=== PATIENT | male | born 1950 | race Caucasian/White ===

== ENCOUNTER 2017-01-13 11:46 | Emergency (ER) | payer BC ==
[2017-01-13] MEDS ORDERED: Famotidine 20 MG/2 ML SDV IVPUSH ONE (11:51)
[2017-01-13] MEDS ORDERED: Aspirin 81 MG Tab.Chew CHEW ONE (11:51)
[2017-01-13] MEDS ORDERED: Ticagrelor 90 MG Tab PO ONE (11:51)
[2017-01-13] MEDS ORDERED: Metoprolol Tartrate 5 MG/5 ML SDV IVPUSH ONE (11:51)
[2017-01-13] MEDS ORDERED: Sodium Chloride 0.9% 10 ML Syringe FLUSH PRN (11:51)
--- NOTE | 2017-01-13 12:14 | EDM.PDOC ---
ED HPI GENERAL MEDICAL PROBLEM - General Chief Complaint: Chest Pain Stated Complaint: epigastic pain, left jaw aching, left arm aching Time Seen by Provider: 01/13/17 11:46 Source of Information: Reports: Patient, Old Records ([facility] chart/EMR) History Limitations: Reports: No Limitations - History of Present Illness INITIAL COMMENTS - FREE TEXT/NARRATIVE: The patient drove himself to the emergency room via private automobile after brief evaluation by his regular provider, Parish Richards PA-C, at the [facility] [place] in [place], shortly prior to arrival to our facility with no treatment given in that clinic by his history. He was awakened from his sleep at 04:00 a.m. today with 10/10 retrosternal chest pressure with radiation to the left jaw , neck, shoulder, and arm with additional nausea, one episode of emesis, and cold sweats/diaphoresis. The patient did take 2 antacid tablets at that time with improvement of his symptoms to 5/10, although this does persist at this time. The patient denies any heart flutter, dizziness, orthostasis, orthopnea, recent decreased exercise tolerance, or any other anginal-type symptoms. No recent history of abdominal pain, heartburn, diarrhea, melena, gross hematochezia, or any food intolerance, including fatty foods, etc. with normal bowel movement yesterday afternoon. His last oral intake was some coffee at about 9 AM with no solids since going to bed yesterday. He denies any nausea at this time. The patient also denies any recent fever, cough, wheezing, dyspnea, etc.. No history of recent headaches, visual changes, diplopia, change in mental status, or other change in neurological status. His blood pressure has been somewhat under poor control recently by his history Onset: Today, Sudden Onset Date: 01/13/17 Onset Time: 04:00 Duration: Constant, Heavy Location: Reports: Face, Neck, Chest, Upper Extremity, Left, Radiates to (As above). Denies: Head, Abdomen, Back, Pelvis, Upper Extremity, Right, Lower Extremity, Left, Lower Extremity, Right, Generalized Quality: Reports: Pressure, Stabbing Severity: Severe Improves with: Reports: Medication (Antacids as above) Worsens with: Reports: None Context: Reports: Other (As above) Associated Symptoms: Reports: Chest Pain, Diaphoresis, Nausea/Vomiting. Denies : Confusion, Cough, Fever/Chills, Headaches, Loss of Appetite, Malaise, Rash, Seizure, Shortness of Breath, Syncope, Weakness Treatments DRIVE TESTER: Reports: Acetaminophen, Other Medication(s) (Antacids and morning medications taken at 5 AM including his Prilosec, etc.) Middle Chest Pain Score (Numeric/FACES): 5 - Related Data Allergies Allergy/AdvReac Type Severity Reaction Status Date / Time lisinopril Allergy Cough Verified 06/06/14 12:58 peanut Allergy Wheezing Verified 06/06/14 12:58 Penicillins Allergy unknown Verified 06/06/14 12:58 Sulfa (Sulfonamide Allergy Hives Verified 06/06/14 12:58 Antibiotics) CATS Allergy Wheezing Uncoded 01/13/17 12:22 DUST MITE EXTRACT Allergy Wheezing Uncoded 06/06/14 12:58 HORSE Allergy Wheezing Uncoded 06/06/14 12:58 Home Meds: Home Meds Acetaminophen 1,000 mg PO DAILY 06/06/14 [History] Fexofenadine/Pseudoephedrine [Mica-D 12 Hour Tablet] 1 tab PO DAILY PRN 06/06 [History] Fluticasone Propionate [Flonase] 2 sprays INH DAILY PRN 06/06/14 [History] Hydrochlorothiazide 25 mg PO DAILY 06/06/14 [History] Losartan [Cozaar] 100 mg PO DAILY 06/06/14 [History] Meloxicam 7.5 mg PO DAILY 06/06/14 [History] Terbinafine HCl [Lamisil] 250 mg PO DAILY 06/06/14 [History] amLODIPine Besylate [Amlodipine Besylate] 10 mg PO DAILY 06/06/14 [History] buPROPion HCl [Wellbutrin SR] 150 mg PO DAILY 06/06/14 [History] Omeprazole 40 mg PO DAILY 01/13/17 [History] Past Medical History HEENT History: Reports: Allergic Rhinitis, Impaired Vision, Other (See Below). 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 Denies: Afib, Aneurysm, Blood Clots/VTE/DVT, CAD, Heart Failure, Heart Murmur, MD, PVD, Syncope Other Cardiovascular History: Dyslipidemia, complete right bundle branch block Respiratory History: Reports: Bronchitis, Recurrent, COPD, Intubation, Previous , Pulmonary Fibrosis, Other (See Below). Denies: Asthma, Intubation, Difficult , PE, Pneumothorax, TB Other Respiratory History: Pulmonary fibrosis by chest x-ray Gastrointestinal History: Reports: Colon Polyp, Gastritis, GERD, PUD, Other ( See Below). Denies: Celiac Disease, Cholelithiasis, Chronic Constipation, Chronic Diarrhea, Diverticulosis, Fecal Incontinence, GI Bleed, Hepatitis, Hiatal Hernia, Inflammatory Bowel Disease, Irritable Bowel Syndrome, Jaundice, Pancreatitis Other Gastrointestinal History: History of recurrent colonic polyps initially diagnosed by colonoscopy on 04/06/07 with subsequent colonoscopy on 06/06/14 showing a tubulous adenoma 35 centimeters, adenomatous colonic polyp at 30 cm and a benign hyperplastic polyp at 15 cm Genitourinary History: Reports: BPH. Denies: Acute Renal Failure, Chronic Renal Insuffiency, Dialysis, Renal Calculus, STD, Urinary Incontinence, UTI, Recurrent Musculoskeletal History: Reports: Arthritis, Back Pain, Chronic, Fracture, Neck Pain, Chronic, Osteoarthritis, Other (See Below). Denies: Amputation, Gout, RA , SLE Other Musculoskeletal History: Left lateral malleolus on 05/13/94, right wrist fracture at age 18, fractures of the third and fourth finger of the right hand in 1970 secondary to a boxing injury, two previous nasal fractures 1 from boxing and the other from football Neurological History: Reports: Headaches, Chronic, Neuropathy, Peripheral, Other (See Below). Denies: Brain Injury, Cerebral Aneurysms, Concussion, CVA, Head Trauma, Migraines, MS, Parkinson's, Seizure, TIA Other Neuro History: Known history of carpal tunnel syndrome Psychiatric History: Reports: Anxiety, Depression. Denies: Abuse, Victim of, ADD, ADHD, Addiction, Psych Hospitalization(s), PTSD, Suicide Attempt, Suicidal Ideation Endocrine/Metabolic History: Reports: Other (See Below). Denies: Diabetes, Type I, Diabetes, Type II, Hyperparathyroidism, Hypothyroidism, IDDM, Osteoporosis Other Endocrine/Metabolic History: Borderline hyperglycemia currently treated with diet Hematologic History: Reports: Other (See Below). Denies: Anemia, Blood Transfusion(s), Iron Deficiency Other Hematologic History: Macrocytosis Immunologic History: Reports: None. Denies: AIDS, HIV, SLE Oncologic (Cancer) History: Reports: None, Pancreatic. Denies: Basal Cell Carcinoma, Colon, Hodgkin's Lymphoma, Leukemia, Lymphoma, Malignant Melanoma, Non-Hodgkin's Lymphoma, Prostate, Squamous Cell Carcinoma Dermatologic History: Reports: None. Denies: Eczema, Psoriasis - Infectious Disease History Infectious Disease History: Reports: Measles, Rubella. Denies: C-Difficile, Chicken Pox (Uncertain), Meningitis, Mononucleosis, MRSA, Mumps, Pertussis ( Whooping Cough), Rheumatic Fever, Scarlet Fever, TB, VRE - Past Surgical History Head Surgeries/Procedures: Reports: None HEENT Surgical History: Reports: Adenoidectomy, Oral Surgery, Tonsillectomy, Other (See Below). Denies: Cataract Surgery, Eye Surgery, Laser Surgery, LASIK , Myringotomy w Tube(s), Naso-Sinus Surgery Other HEENT Surgeries/Procedures: Tonsillectomy and adenoidectomy at age 10, [place] teeth extraction 4 with multiple previous dental extractions with partial dentures uppers and lowers Cardiovascular Surgical History: Reports: None. Denies: Varicose, Vascular Surgery Respiratory Surgical History: Reports: None. Denies: Thoracentesis GI Surgical History: Reports: Colonoscopy, EGD, Hernia, Inguinal, Polypectomy, Other (See Below). Denies: Appendectomy, Cholecystectomy, Hernia, Abdominal, Hernia Repair/Other Other GI Surgeries/Procedures: Right inguinal hernia repair in about 2008, last colonoscopy and EGD on 04/06/15 with previous evaluation on 04/06/07, previous colonoscopy on 09/18/01 Male Surgical History: Reports: Circumcision, Other (See Below). Denies: Renal Calculus, TURP-Transurethral Resection of Prostate, Vasectomy Other Male Surgeries/Procedures: Circumcision as an Neurological Surgical History: Reports: C-Spine, Laminectomy, Other (See Below) . Denies: Discectomy, Intracranial, Lumbar Spine, Spinal Fusion, Vertebroplasty Other Neurological Surgeries/Procedures: Cervical laminectomy on 11/24/01 Musculoskeletal Surgical History: Reports: Carpal Tunnel, Ganglion Cyst, Shoulder Replacement, Shoulder Surgery, Other (See Below). Denies: Arthroscopic Procedure, Joint Replacement, ORIF Other Musculoskeletal Surgeries/Procedures:: Left-sided carpal tunnel release with concomitant excision of benign ganglion cyst from the left thumb in August 2016, right shoulder arthroplasty on 08/11/11 Oncologic Surgical History: Reports: None Dermatological Surgical History: Reports: None - Past Imaging History Past Imaging History: Reports: PFT (Last PFTs on 03/30/07 with previous evaluation on 11/01/02). Denies: Angiography, Cardiac Echo, Carotid US, Stress Testing Social & Family History - Family History HEENT: Reports: Allergic Rhinitis, Macular Degeneration, Other (See Below). Denies: Cataract, Glaucoma, Retinal Detachment Other HEENT Family History: Mother with allergic rhinitis, brother with macular degeneration Cardiac: Reports: Arrhythmia, CAD, High Cholesterol, Hypertension, PVD/COD, Other (See Below). Denies: Afib, AICD, Aneurysm, Blood Clots/VTE/DVT, Bypass, Heart Failure, Heart Murmur, MD, Pacemaker, Stent, Syncope Other Cardiac Family History: Mother with unknown type of arrhythmia and heart disease in her 70s, hypertension in mother and 2 brothers, brothers 2 and sister with hyperlipidemia, brother with carotid occlusive disease which did require carotid endarterectomy Respiratory: Reports: Asthma, COPD, Other (See Below). Denies: PE, Pneumothorax , Sleep Apnea Other Respiratory Family Hisory: Mother with asthma, COPD in 2 maternal uncles who did use tobacco with one of these uncles dying at age 55 from this disease, brother with COPD and history of tobacco use GI: Reports: Cholelithiasis, Colon Polyps, GERD, Hiatal Hernia, Other (See Below ). Denies: Celiac Disease, Diverticulosis, GI bleed, Inflammatory Bowel Disease , Irritable Bowel Syndrome Other GI Family History: Brother with colonic polyps at age 48, Brother with hiatal hernia, mother with cholelithiasis and GERD, father with peptic ulcer disease : Reports: Renal Calculus, Other (See Below). Denies: Dialysis, Renal Disease /Insufficiency Other Family History: Brother with urolithiasis Musculoskeletal: Reports: Arthritis, Osteoarthritis, Other (See Below). Denies : Gout, RA, SLE Other Musculoskeletal Family History: Brother with osteoarthritis Neurological: Reports: Alzheimers Disease, CVA, Dementia, Other (See Below). Denies: Cerebral Aneurysms, Migraines, MS, Parkinson's, Seizure, TIA Other Neurological Family History: Father with CVA at age 92, mother with organic brain syndrome, maternal grandmother with history of 2 previous CVAs fatal in her 90s Psychiatric: Reports: Anxiety, Depression, Other (See Below). Denies: Abuse, Victim of, ADD, ADHD, Psych Hospitalization(s), PTSD, Suicide Attempt Other Psychiatric Family History: Mother with mixed anxiety depression disorder Endocrine/Metabolic: Reports: None. Denies: Diabetes, Type I, Diabetes, type II , Hypothyroidism, IDDM Hematologic: Reports: None. Denies: Anemia, SLE, Transfusion Reaction Immunologic: Reports: None. Denies: AIDS, HIV, SLE Dermatologic: Reports: Eczema. Denies: Psoriasis Other Dermatologic Family History: Mother with eczema Oncologic: Reports: Colon, Other (See Below). Denies: Hodgkin's Lymphoma, Leukemia, Lymphoma, Non-Hodgkin's Lymphoma, Prostate, Skin Other Oncologic Family History: Paternal uncle with fatal colon cancer at age 74 , paternal grandfather with fatal cancer of unknown type, patient denies family history of rectal cancer in maternal uncle despite medical records - Tobacco Use Smoking Status *Q: Former Smoker Tobacco Use Within Last Twelve Months: No Years of Tobacco use: 50 Packs/Tins Daily: 2 (Smoke cigarettes between ages 61 and 11 with maximum use of 3 packs per day) Used Tobacco, but Quit: Yes Month Tobacco Last Used: As above Smoking Cessation Information Provided To Patient: No Second Hand Smoke Exposure: Yes Source of Second Hand Smoke Exposure: smokes Second Hand Smoke Education Provided: Yes - Caffeine Use Caffeine Use: Reports: Coffee (2 cups per day), Soda (2 sodas per day). Denies : Energy Drinks, Tea - Alcohol Use Alcohol Use History: Yes Days Per Week of Alcohol Use: 7 (No previous DWIs, problems with alcohol abuse, etc.) Number of Drinks Per Day: 3 (Usually wine or mixed drinks with occasional beer) Total Drinks Per Week: 21 Alcohol Use in Last Twelve Months: Yes Alcohol Use Frequency: Socially - Recreational Drug Use Recreational Drug Use: No Drug Use in Last 12 Months: No Recreational Drug Type: Denies: Amphetamines (Speed), Cocaine, Heroin, Inhalants (Glues, Solvents, Aerosols), LSD (Acid), Marijuana/Hashish, Morphine, Psilocybin (Mushrooms) - Living Situation & Occupation Living situation: Reports: ( to second in 1986 with no children from this relationship, from first with 2 children from this relationship,), with Family () 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 Denies: Fever, Chills, Malaise, Weakness , Fatigue, Night Sweats, Decreased Appetite, Weight Loss, Weight Gain HEENT: Reports: No Symptoms. Denies: Contact Lenses, Dental Pain, Ear Pain, Eye Pain, Glasses, Nose Pain, Rhinitis, Sinus Problem, Throat Pain, Throat Swelling, Vertigo, Vision Change Respiratory: Reports: No Symptoms. Denies: Shortness of Breath, Wheezing, Pleuritic Chest Pain, Cough Cardiovascular: Reports: Chest Pain, Blood Pressure Problem (Elevated blood pressure on arrival). Denies: Dyspnea on Exertion, Edema, Lightheadedness, Orthopnea, Palpitations, PND, Syncope Endocrine: Reports: No Symptoms. Denies: Fatigue GI/Abdominal: Reports: Nausea, Vomiting. Denies: Abdominal Pain, Anorexia, Constipation, Diarrhea, Decreased Appetite, Difficulty Swallowing, Distension, Flatus, Hematemesis, Hematochezia, Melena : Reports: No Symptoms. Denies: Discharge, Dysuria, Flank Pain, Frequency, Hematuria, Incontinence, Pain, Urgency, Urinary Retention Musculoskeletal: Reports: Neck Pain, Shoulder Pain, Arm Pain. Denies: Back Pain , Hand Pain, Leg Pain Skin: Reports: Diaphoresis. Denies: Pallor, Bruising, Wound Neurological: Reports: No Symptoms. Denies: Confusion, Dizziness, Headache, Numbness, Paresthesia, Seizure, Syncope, Tingling, Weakness Psychiatric: Reports: No Symptoms. Denies: Agitation, Anxiety, Confusion, Cravings, Depression, Hallucinations, Suicidal Ideation Hematologic/Lymphatic: Reports: No Symptoms Immunologic: Reports: No Symptoms ED EXAM, GENERAL - Physical Exam Exam: See Below Exam Limited By: No Limitations General Appearance: Alert, WD/WN, No Apparent Distress Eye Exam: Bilateral Eye: EOMI, Normal Inspection (No nystagmus), PERRL Ears: Normal External Exam, Normal Canal, Normal TMs, Hearing Loss (Borderline bilateral) Nose: Normal Inspection, Normal Mucosa, No Blood Throat/Mouth: Normal Inspection, Normal Lips, Normal Gums, Normal Oropharynx, Normal Voice, No Airway Compromise. No: Normal Teeth (Partial dentures uppers and lowers), Dysphagia, Perioral Cyanosis Head: Atraumatic, Normocephalic. No: Facial Swelling, Facial Tenderness, Sinus Tenderness Neck: Normal Inspection, Supple, Non-Tender, Full Range of Motion. No: Carotid Bruit, Lymphadenopathy (L), Lymphadenopathy (R), Thyromegaly Respiratory/Chest: No Respiratory Distress, Lungs Clear, Normal Breath Sounds, No Accessory Muscle Use, Chest Non-Tender. No: Pleural Rub, Retractions Cardiovascular: Normal Peripheral Pulses, Regular Rate, Rhythm, No Edema, No Gallop, No JVD, No Murmur, No Rub. No: Tachycardia (Resolution of borderline tachycardia on arrival), Gallop/S3, Gallop/S4, Friction Rub Peripheral Pulses: 2+: Radial (L), Radial (R), Dorsalis Pedis (L), Dorsalis Pedis (R) GI/Abdominal: Normal Bowel Sounds, Soft, Non-Tender, No Organomegaly, No Distention, No Abnormal Bruit, No Mass, Pelvis Stable. No: Guarding (Male) Exam: Deferred Rectal (Males) Exam: Deferred Back Exam: Normal Inspection, Full Range of Motion. No: CVA Tenderness (L), CVA Tenderness (R), Muscle Spasm Extremities: Normal Inspection, Normal Range of Motion, Non-Tender, No Pedal Edema, Normal Capillary Refill. No: Anjali's Sign Neurological: Alert, Oriented, CN II-XII Intact, Normal Cognition, Normal Gait, Normal Reflexes (Negative Babinski's), No Motor/Sensory Deficits Psychiatric: Normal Affect, Normal Mood Skin Exam: Warm, Dry, Intact, Normal Color, No Rash. No: Cyanosis, Diaphoretic , Ecchymosis, Pallor, Wound/Incision Lymphatic: No Adenopathy EKG INTERPRETATION EKG Date: 01/13/17 Time: 11:58 Rhythm: NSR Rate (Beats/Min): 96 [place]: Normal (Left cardiac axis) P-Wave: Present (Mild diffuse biphasic P waves with extreme poor R-wave progression in the anterior leads) QRS: RBBB (QRS interval of 0.12 seconds with T-wave inversion in leads 3 and V1) ST-T: Normal QT: Normal CO/PQ Interval: CO interval 0.12 seconds representing a short CO interval with no delta waves noted Comparison: No Change (Previous EKG on 02/23/09) Course - Vital Signs Last Recorded V/S: Last Vital Signs Temp 36.8 C 01/13/17 11:46 Pulse 93 01/13/17 13:40 Resp 20 01/13/17 13:40 BP 168/100 H 01/13/17 13:40 Pulse Ox 100 01/13/17 13:40 Vital Signs - 24 hr 01/13/17 01/13/17 01/13/17 11:46 12:05 12:18 Temperature [ 36.8 C Oral] Pulse, 99 Peripheral Pulse, 111 H Peripheral [ Left Pulse Oximetry] Respiratory 18 Rate Blood Pressure 165/93 H 157/98 H Blood Pressure 186/101 H [Right Upper Arm] O2 Sat by Pulse 100 Oximetry 01/13/17 01/13/17 01/13/17 12:37 12:38 12:45 Temperature [ Oral] Pulse, Peripheral Pulse, 103 H 87 83 Peripheral [ Left Pulse Oximetry] Respiratory 21 H 17 20 Rate Blood Pressure Blood Pressure 165/93 H 149/93 H 158/98 H [Right Upper Arm] O2 Sat by Pulse 100 100 100 Oximetry 01/13/17 01/13/17 01/13/17 13:00 13:15 13:32 Temperature [ Oral] Pulse, Peripheral Pulse, 85 89 89 Peripheral [ Left Pulse Oximetry] Respiratory 19 20 Rate Blood Pressure Blood Pressure 167/92 H 165/96 H 156/124 H [Right Upper Arm] O2 Sat by Pulse 100 100 Oximetry 01/13/17 13:40 Temperature [ Oral] Pulse, Peripheral Pulse, 93 Peripheral [ Left Pulse Oximetry] Respiratory 20 Rate Blood Pressure Blood Pressure 168/100 H [Right Upper Arm] O2 Sat by Pulse 100 Oximetry - Orders/Labs/Meds Orders: Active Orders 24 hr Category Date Time Status Cardiac Monitoring [RC] . DIRECTED Care 01/13/17 11:51 Active EKG Documentation Completion [RC] ASDIRECTED Care 01/13/17 11:51 Active Oxygen Therapy, ED [RC] CONTINUOUS Care 01/13/17 11:51 Active Peripheral IV Care [RC] . DIRECTED Care 01/13/17 11:51 Active Pulse Oximetry [RC] CONTINUOUS Care 01/13/17 11:51 Active Up With Assistance [RC] PFP Care 01/13/17 11:51 Active Vital Signs [RC] PFP Care 01/13/17 11:51 Active Nothing per Oral Now Diet [DIET] Diet 01/13/17 Breakfast Active Chest 1V Frontal [CR] Stat Exams 01/13/17 11:51 Taken Heparin Sodium/D5W [Heparin 25,000 Units in D5W 500 ML] Med 01/13/17 13:00 Active 25,000 units in 500 ml IV TITRATE Nitroglycerin [Nitrostat] Med 01/13/17 12:16 Stat 0.4 mg SL ONETIME STA Sodium Chloride 0.9% [Normal Saline] 1,000 ml Med 01/13/17 13:30 Active IV ASDIRECTED Sodium Chloride 0.9% [Saline Flush] Med 01/13/17 11:51 Active 10 ml FLUSH ASDIRECTED PRN Obtain Past Medical Record [OM.PC] Urgent Oth 01/13/17 11:51 Active Peripheral IV Insertion Adult [OM.PC] Stat Oth 01/13/17 11:51 Ordered Resuscitation Status Stat Resus Stat 01/13/17 11:51 Ordered Medication Orders Heparin Sodium/Dextrose (Heparin 25,000 Units In D5w 500 Ml) 25,000 units in 500 mls @ 16.32 mls/hr IV TITRATE BYRON; 12 UNITS/KG/HR PRN Reason: Protocol Last Admin: 01/13/17 13:12 Dose: 12 units/kg/hr, 16.32 mls/hr Sodium Chloride (Normal Saline) 1,000 mls @ 30 mls/hr IV ASDIRECTED BYRON Last Admin: 01/13/17 13:21 Dose: 30 mls/hr Nitroglycerin (Nitrostat) 0.4 mg SL ONETIME STA Stop: 01/14/17 12:17 Last Admin: 01/13/17 12:18 Dose: 0.4 mg Sodium Chloride (Saline Flush) 10 ml FLUSH ASDIRECTED PRN PRN Reason: Keep Vein Open Last Admin: 01/13/17 13:03 Dose: 10 ml Labs: Laboratory Tests 01/13/17 01/13/17 01/13/17 Range/Units 12:00 12:00 12:00 WBC 6.2 (4.0-10.2) K/uL RBC 4.52 (4.33-5.41) M/uL Hgb 15.1 (13.1-16.8) g/dL Hct 41.7 (39.0-49.0) % MCV 92.3 (84.0-98.0) fL MCH 33.4 H (28.2-33.3) pg MCHC 36.2 H (31.7-36.0) g/dL RDW 11.8 (11.2-14.1) % Plt Count 306 (150-350) K/uL Neut % (Auto) 61.6 (45.0-80.0) % Lymph % (Auto) 23.7 (10.0-50.0) % [place] % (Auto) 12.0 (2.0-14.0) % Eos % (Auto) 2.1 (0.0-5.0) % Baso % (Auto) 0.6 (0.0-2.0) % Neut # (Auto) 3.81 (1.40-7.00) K/uL Lymph # (Auto) 1.47 (0.50-3.50) K/uL [place] # (Auto) 0.74 (0.00-1.00) K/uL Eos # (Auto) 0.13 (0.00-0.50) K/uL Baso # (Auto) 0.04 (0.00-0.20) K/uL PT 10.7 (9.8-11.7) SEC INR 1.0 APTT 23.9 (23.5-30.0) SEC D-Dimer, Quantitative < 100 (0-400) ng/mL Sodium (136-145) mmol/L Potassium (3.5-5.1) mmol/L Chloride (98-107) mmol/L Carbon Dioxide (21.0-32.0) mmol/L BUN (7-18) mg/dL Creatinine (0.51-1.17) mg/dL Est Cr Clr Drug Dosing Estimated GFR (MDRD) mL/min Glucose (74-106) mg/dL Lactic Acid (0.4-2.0) mmol/L Uric Acid (2.6-7.2) mg/dL Calcium (8.5-10.1) mg/dL Magnesium (1.8-2.4) mg/dL Total Bilirubin (0.2-1.0) mg/dL AST (15-37) U/L ALT (12-78) U/L Alkaline Phosphatase (46-116) IU/L Creatine Kinase (26-308) U/L Creatine Kinase Index (0.0-2.5) % CK-MB (CK-2) (0.00-3.60) ng/mL Troponin I (0.000-0.056) ng/mL Scy-K-Fuckexxqufl Pept (0-125) pg/mL Total Protein (6.4-8.2) g/dL Albumin (3.4-5.0) g/dL TSH, Ultra Sensitive (0.358-3.740) mIU/mL 01/13/17 01/13/17 Range/Units 12:00 12:00 WBC (4.0-10.2) K/uL RBC (4.33-5.41) M/uL Hgb (13.1-16.8) g/dL Hct (39.0-49.0) % MCV (84.0-98.0) fL MCH (28.2-33.3) pg MCHC (31.7-36.0) g/dL RDW (11.2-14.1) % Plt Count (150-350) K/uL Neut % (Auto) (45.0-80.0) % Lymph % (Auto) (10.0-50.0) % [place] % (Auto) (2.0-14.0) % Eos % (Auto) (0.0-5.0) % Baso % (Auto) (0.0-2.0) % Neut # (Auto) (1.40-7.00) K/uL Lymph # (Auto) (0.50-3.50) K/uL [place] # (Auto) (0.00-1.00) K/uL Eos # (Auto) (0.00-0.50) K/uL Baso # (Auto) (0.00-0.20) K/uL PT (9.8-11.7) SEC INR APTT (23.5-30.0) SEC D-Dimer, Quantitative (0-400) ng/mL Sodium 141 (136-145) mmol/L Potassium 3.6 (3.5-5.1) mmol/L Chloride 103 (98-107) mmol/L Carbon Dioxide 27.5 (21.0-32.0) mmol/L BUN 15 (7-18) mg/dL Creatinine 0.98 (0.51-1.17) mg/dL Est Cr Clr Drug Dosing TNP Estimated GFR (MDRD) > 60 mL/min Glucose 108 H (74-106) mg/dL Lactic Acid 0.6 (0.4-2.0) mmol/L Uric Acid 3.8 (2.6-7.2) mg/dL Calcium 9.1 (8.5-10.1) mg/dL Magnesium 0.9 L (1.8-2.4) mg/dL Total Bilirubin 0.9 (0.2-1.0) mg/dL AST 20 (15-37) U/L ALT 29 (12-78) U/L Alkaline Phosphatase 78 (46-116) IU/L Creatine Kinase 80 (26-308) U/L Creatine Kinase Index 2.8 H (0.0-2.5) % CK-MB (CK-2) 2.20 (0.00-3.60) ng/mL Troponin I 0.099 H* (0.000-0.056) ng/mL [id number] Pept 483 H (0-125) pg/mL Total Protein 7.8 (6.4-8.2) g/dL Albumin 4.2 (3.4-5.0) g/dL TSH, Ultra Sensitive 1.199 (0.358-3.740) mIU/mL Meds: Medications Generic Name Dose Route Start Last Admin Trade Name Freq PRN Reason Stop Dose Admin Heparin Sodium/Dextrose 25,000 units in 500 mls @ 16.32 mls/hr 01/13/17 13:00 01/13/17 13:12 Heparin 25,000 Units In D5w 500 Ml IV 12 units/kg/hr TITRATE BYRON 16.32 mls/hr Protocol Administration 12 UNITS/KG/HR Sodium Chloride 1,000 mls @ 30 mls/hr 01/13/17 13:30 01/13/17 13:21 Normal Saline IV 30 mls/hr ASDIRECTED BYRON Administration Nitroglycerin 0.4 mg 01/13/17 12:16 01/13/17 12:18 Nitrostat SL 01/14/17 12:17 0.4 mg ONETIME STA Administration Sodium Chloride 10 ml 01/13/17 11:51 01/13/17 13:03 Saline Flush FLUSH 10 ml ASDIRECTED PRN Administration Keep Vein Open Discontinued Medications Generic Name Dose Route Start Last Admin Trade Name Freq PRN Reason Stop Dose Admin Aspirin 324 mg 01/13/17 11:51 01/13/17 12:06 Aspirin CHEW 01/13/17 11:52 324 mg ONETIME ONE Administration Famotidine 40 mg 01/13/17 11:51 01/13/17 12:05 Pepcid IVPUSH 01/13/17 11:52 40 mg ONETIME ONE Administration Heparin Sodium (Porcine) 5,000 units 01/13/17 12:59 01/13/17 13:03 Heparin Sodium IVPUSH 01/13/17 13:00 5,000 units ONETIME ONE Administration Metoprolol Tartrate 2.5 mg 01/13/17 11:51 01/13/17 12:05 Lopressor IVPUSH 01/13/17 11:52 2.5 mg ONETIME ONE Administration Nitroglycerin 0.5 gm 01/13/17 13:46 01/13/17 13:49 Nitro-Bid 2% TOP 01/13/17 13:47 0.5 gm ONETIME ONE Administration Ticagrelor 180 mg 01/13/17 11:51 01/13/17 12:06 Brilinta PO 01/13/17 11:52 180 mg ONETIME ONE Administration - Radiology Interpretation Free Text/Narrative:: circus hand initially showed sinus tachycardia in the 100s with improvement of his heart rate to the 80s after medical therapy at time of transfer. No ectopy or arrhythmia. Chest x-ray, portable, shows evidence of mild to moderate COPD changes with no pulmonary infiltrates, pneumothorax, etc. No cardiomegaly with probable borderline pulmonary hypertension and/or minimal centralized CHF Departure - Departure Time of Disposition: 13:55 Disposition: DC/Tfer to Acute Hospital 02 Reason for Transfer *Q: Other (Cardiology consultation on arrival, non-STEMI) Condition: Good Clinical Impression: Acute MD, CHF (congestive heart failure), COPD (chronic obstructive pulmonary disease), Hypomagnesemia, Complete right bundle branch block, Dyslipidemia, Hyperglycemia, Hypertension, Osteoarthritis, Peptic reflux disease, Tobacco abuse counseling Referrals: Parish Richards PA [Primary Care Provider] - Forms: ED Department Discharge, Interfacility Transfer EMTALA - Problem List & Annotations (1) Acute MD SNOMED Code(s): 08215268 Code(s): I21.3 - ST ELEVATION (STEMI) MYOCARDIAL INFARCTION OF [facility] SITE Status: Acute Priority: High Current Visit: Yes Onset Date: 01/13/17 Annotation/Comment:: Chest pain protocol initiated immediately upon patient's arrival to the emergency room. Patient did respond to aggressive treatment as above and was chest pain-free at time of transfer. Telephone consultation at 12: 50 p.m. with Kehinde Carranza M.D., hospitalist at [facility], who does accept the patient for direct admission and further treatment and evaluation, cardiology consultation, etc.. He is also in agreement with my recommendation of starting IV heparin per standard protocol. No further treatment recommendations given. Clinical exam, vital signs, etc. stable at time of transfer. Note administration of supplemental nitroglycerin for his chest discomfort and for blood pressure control with nitropaste therapy also initiated immediately prior to transfer secondary to mildly elevated blood pressure at that time Qualifiers: Myocardial infarction ST status: non-ST elevation myocardial infarction Qualified Code(s): I21.4 - Non-ST elevation (NSTEMI) myocardial infarction (2) CHF (congestive heart failure) SNOMED Code(s): 54416299 Code(s): I50.9 - HEART FAILURE, UNSPECIFIED Status: Acute Priority: High Current Visit: Yes Onset Date: 01/13/17 Annotation/Comment:: Cardiology consultation shortly after admission as above with probable heart catheterization and possible further echocardiogram, etc.. Only borderline CHF by clinical exam and chest x-ray despite elevated BNP. Consider IV Lasix therapy depending on his clinical course Qualifiers: Congestive heart failure type: unspecified congestive heart failure type Congestive heart failure chronicity: acute Qualified Code(s): I50.9 - Heart failure, unspecified (3) COPD (chronic obstructive pulmonary disease) SNOMED Code(s): 78949854 Code(s): J44.9 - CHRONIC OBSTRUCTIVE PULMONARY DISEASE, UNSPECIFIED Status : Acute Current Visit: Yes Annotation/Comment:: No recent fever or bronchitic type symptoms Qualifiers: COPD type: emphysema (4) Complete right bundle branch block SNOMED Code(s): 061057491 Code(s): I45.10 - UNSPECIFIED RIGHT BUNDLE-BRANCH BLOCK Status: Chronic Priority: Medium Current Visit: Yes Annotation/Comment:: Nonsymptomatic with no other arrhythmia noted (5) Peptic reflux disease SNOMED Code(s): 81682732 Code(s): K21.9 - GASTRO-ESOPHAGEAL REFLUX DISEASE WITHOUT ESOPHAGITIS Status: Chronic Priority: Medium Current Visit: Yes Annotation/Comment:: Patient did take his Prilosec this morning with additional high-dose IV Pepcid given on patient's arrival to the emergency room. He is on current NSAID therapy (6) Dyslipidemia SNOMED Code(s): 089566447 Code(s): E78.5 - HYPERLIPIDEMIA, UNSPECIFIED Status: Chronic Priority: Medium Current Visit: Yes Annotation/Comment:: Consider lipid panel during upcoming hospitalization (7) Osteoarthritis SNOMED Code(s): 754554879 Code(s): M19.90 - UNSPECIFIED OSTEOARTHRITIS, UNSPECIFIED SITE Status: Chronic Priority: Medium Current Visit: Yes Annotation/Comment:: Stable by history Qualifiers: Osteoarthritis location: multiple joints Osteoarthritis type: primary Qualified Code(s): M15.0 - Primary generalized (osteo)arthritis (8) Hypertension SNOMED Code(s): 83457561 Code(s): I10 - ESSENTIAL (PRIMARY) HYPERTENSION Status: Chronic Priority : High Current Visit: Yes Annotation/Comment:: Recently under poor control by patient history. Note aggressive medical therapy as above with further medication adjustments by accepting physicians Qualifiers: Hypertension type: essential hypertension Qualified Code(s): I10 - Essential (primary) hypertension (9) Hyperglycemia SNOMED Code(s): 55784886 Code(s): R73.9 - HYPERGLYCEMIA, UNSPECIFIED Status: Chronic Priority: Medium Current Visit: Yes Annotation/Comment:: Borderline hyperglycemia by history currently diet controlled. Consider glycosylated hemoglobin (10) Tobacco abuse counseling SNOMED Code(s): 301613459, 602252944, 086053317 Code(s): Z71.6 - TOBACCO ABUSE COUNSELING Status: Chronic Priority: Medium Current Visit: Yes Annotation/Comment:: Tobacco smoke exposure from his , who is apparently not interested in stopping smoking (11) Hypomagnesemia SNOMED Code(s): 770651190 Code(s): E83.42 - HYPOMAGNESEMIA Status: Acute Priority: Medium Current Visit: Yes Onset Date: 01/13/17 Annotation/Comment:: Consider magnesium oxide supplementation - Problem List Review Problem List Initiated/Reviewed/Updated: Yes - My Orders Last 24 Hours: My Active Orders 01/13/17 11:51 Cardiac Monitoring [RC] . DIRECTED EKG Documentation Completion [RC] ASDIRECTED Oxygen Therapy, ED [RC] CONTINUOUS Peripheral IV Care [RC] . DIRECTED Pulse Oximetry [RC] CONTINUOUS Up With Assistance [RC] PFP Vital Signs [RC] PFP Chest 1V Frontal [CR] Stat Sodium Chloride 0.9% [Saline Flush] 10 ml FLUSH ASDIRECTED PRN Obtain Past Medical Record [OM.PC] Urgent Peripheral IV Insertion Adult [OM.PC] Stat Resuscitation Status Stat 01/13/17 12:16 Nitroglycerin [Nitrostat] 0.4 mg SL ONETIME STA 01/13/17 13:00 Heparin Sodium/D5W [Heparin 25,000 Units in D5W 500 ML] 25,000 units in 500 ml IV TITRATE 01/13/17 13:30 Sodium Chloride 0.9% [Normal Saline] 1,000 ml IV ASDIRECTED 01/13/17 Breakfast Nothing per Oral Now Diet [DIET] - Assessment/Plan Last 24 Hours: My Active Orders 01/13/17 11:51 Cardiac Monitoring [RC] . DIRECTED EKG Documentation Completion [RC] ASDIRECTED Oxygen Therapy, ED [RC] CONTINUOUS Peripheral IV Care [RC] . DIRECTED Pulse Oximetry [RC] CONTINUOUS Up With Assistance [RC] PFP Vital Signs [RC] PFP Chest 1V Frontal [CR] Stat Sodium Chloride 0.9% [Saline Flush] 10 ml FLUSH ASDIRECTED PRN Obtain Past Medical Record [OM.PC] Urgent Peripheral IV Insertion Adult [OM.PC] Stat Resuscitation Status Stat 01/13/17 12:16 Nitroglycerin [Nitrostat] 0.4 mg SL ONETIME STA 01/13/17 13:00 Heparin Sodium/D5W [Heparin 25,000 Units in D5W 500 ML] 25,000 units in 500 ml IV TITRATE 01/13/17 13:30 Sodium Chloride 0.9% [Normal Saline] 1,000 ml IV ASDIRECTED 01/13/17 Breakfast Nothing per Oral Now Diet [DIET] Assessment:: As above Plan: As above. Extensive precautions were given to the patient and his , who are in agreement with the treatment plan. Ambulance transfer with resident care aid accompaniment
[2017-01-13] MEDS ORDERED: Nitroglycerin 0.4 MG Tab.SL SL STA (12:16)
[2017-01-13 12:38] LABS: CHLORIDE,CL 103 mmol/L (98-107); SODIUM,NA 141 mmol/L (136-145)
[2017-01-13] MEDS ORDERED: Heparin Sodium 5,000 Units/ML Vial IVPUSH ONE (12:59)
[2017-01-13] MEDS ORDERED: Heparin Sodium/D5W 25,000 UNITS/500 ML BAG IV SCH (13:00)
[2017-01-13] MEDS ORDERED: Sodium Chloride 0.9% 1,000 ML IV SCH (13:30)
[2017-01-13] MEDS ORDERED: Nitroglycerin 2% Oint 1 GM UD Packet TOP ONE (13:46)
[2017-01-13 14:15] VITALS: BP 168/100
== END 2017-01-13 13:55 ==
LOC: LL.ED 11:46
DX: I21.3 ST elevation (STEMI) myocardial infarction of unspecified site (principal); I11.0 Hypertensive heart disease with heart failure; I50.9 Heart failure, unspecified; J44.9 Chronic obstructive pulmonary disease, unspecified; E83.42 Hypomagnesemia; I45.10 Unspecified right bundle-branch block; E78.5 Hyperlipidemia, unspecified; R73.9 Hyperglycemia, unspecified; M19.90 Unspecified osteoarthritis, unspecified site; E78.00 Pure hypercholesterolemia, unspecified; G62.9 Polyneuropathy, unspecified; F41.9 Anxiety disorder, unspecified; F32.9 Major depressive disorder, single episode, unspecified; K21.9 Gastro-esophageal reflux disease without esophagitis; Z71.6 Tobacco abuse counseling; Z88.0 Allergy status to penicillin; Z88.2 Allergy status to sulfonamides; Z88.8 Allergy status to other drugs, medicaments and biological substances; Z91.010 Allergy to peanuts; Z91.048 Other nonmedicinal substance allergy status; Z79.899 Other long term (current) drug therapy; Z98.890 Other specified postprocedural states; Z87.891 Personal history of nicotine dependence
CPT/HCPCS: 36415; 71010; 80053; 82550; 82553; 83605; 83735; 83880; 84443; 84484; 84550; 85025; 85379; 85610; 85730; 93005; 96365; 96375; 96376; 99285; A9270; J1644; J7030; J7050; J3490; S0028

== ENCOUNTER 2017-02-17 23:19 | Inpatient (IN) | payer BC ==
[2017-02-17] MEDS ORDERED: Ondansetron 4 MG/2 ML SDV IVPUSH ONE (23:39)
[2017-02-17] MEDS ORDERED: Famotidine 20 MG/2 ML SDV IVPUSH ONE (23:39)
[2017-02-17] MEDS ORDERED: Lactated Ringers 1,000 ML IV ONE (23:39)
--- NOTE | 2017-02-17 23:39 | EDM.PDOC ---
ED HPI GENERAL MEDICAL PROBLEM - General Chief Complaint: Gastrointestinal Problem Stated Complaint: N/V Time Seen by Provider: 02/17/17 23:35 Source of Information: Reports: Patient, Family (), Old Records ([facility] chart/EMR) History Limitations: Reports: No Limitations - History of Present Illness INITIAL COMMENTS - FREE TEXT/NARRATIVE: The patient was brought to the emergency room via private automobile for evaluation of 10/10 generalized diffuse intermittent abdominal cramping associated with nausea, 2 episodes of emesis, and at least 10 loose watery bowel movements since about 1500:00 hours this afternoon. He did take some OTC antacids at about 18:00 hours with no improvement in his symptoms. No history of fever, recent use of antipyretic medication, known exposure to infection, food poisoning, etc.. He has had some diaphoresis with episodes of emesis as above. The patient denies any chest pain/pressure, heart flutter, orthostasis, orthopnea, diaphoresis, paresthesias, recent decreased exercise tolerance, or any other anginal-type symptoms, although he has had some dizziness later this evening. No recent history of other abdominal pain, heartburn, melena, gross hematochezia, or any food intolerance, including fatty foods, etc.. The patient also denies any recent cough, wheezing, dyspnea, etc.. Onset: Today, Sudden Onset Date: 02/17/17 Onset Time: 15:00 Duration: Getting Worse, Intermittent Location: Reports: Abdomen, Generalized (Muscle cramping). Denies: Head, Face, Neck, Chest, Back, Upper Extremity, Left, Upper Extremity, Right, Radiates to Quality: Reports: Other (Cramping) Severity: Severe Improves with: Reports: None Worsens with: Reports: None Context: Reports: Other (As above) Associated Symptoms: Reports: Diaphoresis, Nausea/Vomiting. Denies: Confusion, Chest Pain, Cough, Fever/Chills, Headaches, Loss of Appetite, Malaise, Rash, Shortness of Breath, Syncope, Weakness Treatments [employer]ER: Reports: Other Medication(s) (As above) Abdominal Pain Score (Numeric/FACES): 10 (Cramping) - Related Data Allergies Allergy/AdvReac Type Severity Reaction Status Date / Time lisinopril Allergy Cough Verified 02/18/17 00:42 peanut Allergy Wheezing Verified 02/18/17 00:42 Sulfa (Sulfonamide Allergy Hives Verified 02/18/17 00:42 Antibiotics) CATS Allergy Wheezing Uncoded 02/18/17 00:42 DUST MITE EXTRACT Allergy Wheezing Uncoded 02/18/17 00:42 HORSE Allergy Wheezing Uncoded 02/18/17 00:42 Home Meds: Home Meds Acetaminophen 1,000 mg PO DAILY 06/06/14 [History] Fexofenadine/Pseudoephedrine [Mica-D 12 Hour Tablet] 1 tab PO DAILY PRN 06/06 [History] Fluticasone Propionate [Flonase] 2 sprays INH DAILY PRN 06/06/14 [History] Losartan [Cozaar] 100 mg PO DAILY 06/06/14 [History] amLODIPine Besylate [Amlodipine Besylate] 10 mg PO DAILY 06/06/14 [History] buPROPion HCl [Wellbutrin SR] 150 mg PO DAILY 06/06/14 [History] Omeprazole 40 mg PO DAILY 01/13/17 [History] Ticagrelor [Brilinta] 90 mg PO DAILY 02/18/17 [History] Past Medical History HEENT History: Reports: Allergic Rhinitis, Impaired Vision, Other (See Below). 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 Denies: Afib, Aneurysm, Blood Clots/VTE/DVT, Bypass, Heart Murmur, Pacemaker, PVD, Syncope Other Cardiovascular History: Non-STEMI on 01/13/17 with PTCA/stent as below, Dyslipidemia, complete right bundle branch block/incomplete right bundle branch block, short NV interval, left atrial enlargement, mild ischemic cardiomyopathy Respiratory History: Reports: Bronchitis, Recurrent, COPD, Intubation, Previous , Pulmonary Fibrosis, Other (See Below). Denies: Asthma, Intubation, Difficult , PE, Pneumothorax, TB Other Respiratory History: Pulmonary fibrosis by chest x-ray Gastrointestinal History: Reports: Colon Polyp, Gastritis, GERD, PUD, Other ( See Below). Denies: Celiac Disease, Cholelithiasis, Chronic Constipation, Chronic Diarrhea, Diverticulosis, Fecal Incontinence, GI Bleed, Hepatitis, Hiatal Hernia, Inflammatory Bowel Disease, Irritable Bowel Syndrome, Jaundice, Pancreatitis Other Gastrointestinal History: History of recurrent colonic polyps initially diagnosed by colonoscopy on 04/06/07 with subsequent colonoscopy on 06/06/14 showing a tubulous adenoma 35 centimeters, adenomatous colonic polyp at 30 cm and a benign hyperplastic polyp at 15 cm Genitourinary History: Reports: BPH. Denies: Acute Renal Failure, Chronic Renal Insuffiency, Dialysis, Renal Calculus, STD, Urinary Incontinence, UTI, Recurrent Musculoskeletal History: Reports: Arthritis, Back Pain, Chronic, Fracture, Neck Pain, Chronic, Osteoarthritis, Other (See Below). Denies: Amputation, Gout, RA , SLE Other Musculoskeletal History: Left lateral malleolar fracture on 05/13/94, right wrist fracture at age 18, fractures of the third and fourth finger of the right hand in 1969 secondary to a boxing injury, two previous nasal fractures 1 from boxing and the other from football, mild to moderate scoliosis Neurological History: Reports: Headaches, Chronic, Neuropathy, Peripheral, Other (See Below). Denies: Brain Injury, Cerebral Aneurysms, Concussion, CVA, Head Trauma, Migraines, MS, Parkinson's, Seizure, TIA Other Neuro History: Known history of carpal tunnel syndrome Psychiatric History: Reports: Anxiety, Depression. Denies: Abuse, Victim of, ADD, ADHD, Addiction, Psych Hospitalization(s), PTSD, Suicide Attempt, Suicidal Ideation Endocrine/Metabolic History: Reports: Other (See Below). Denies: Diabetes, Type I, Diabetes, Type II, Hyperparathyroidism, Hypothyroidism, IDDM, Osteoporosis Other Endocrine/Metabolic History: Borderline hyperglycemia currently treated with diet, hypomagnesemia Hematologic History: Reports: Other (See Below). Denies: Anemia, Blood Transfusion(s), Iron Deficiency Other Hematologic History: Macrocytosis Immunologic History: Reports: None. Denies: AIDS, HIV, SLE Oncologic (Cancer) History: Reports: None. Denies: Basal Cell Carcinoma, Colon , Hodgkin's Lymphoma, Leukemia, Lymphoma, Malignant Melanoma, Non-Hodgkin's Lymphoma, Prostate, Squamous Cell Carcinoma Dermatologic History: Reports: None. Denies: Eczema, Psoriasis - Infectious Disease History Infectious Disease History: Reports: Measles, Rubella. Denies: C-Difficile, Chicken Pox (Uncertain), Meningitis, Mononucleosis, MRSA, Mumps, Pertussis ( Whooping Cough), Rheumatic Fever, Scarlet Fever, TB, VRE - Past Surgical History Head Surgeries/Procedures: Reports: None HEENT Surgical History: Reports: Adenoidectomy, Oral Surgery, Tonsillectomy, Other (See Below). Denies: Cataract Surgery, Eye Surgery, Laser Surgery, LASIK , Myringotomy w Tube(s), Naso-Sinus Surgery Other HEENT Surgeries/Procedures: Tonsillectomy and adenoidectomy at age 10, [place] teeth extraction 4 with multiple previous dental extractions with partial dentures uppers and lowers Cardiovascular Surgical History: Reports: Coronary Artery Stent, Percutaneous Transluminal Angioplasty, Other (See Below). Denies: Coronary Artery Bypass, Varicose Other Cardiovascular Surgeries/Procedures: PTCA/stent of the mid right coronary artery on 01/14/17 Respiratory Surgical History: Reports: None. Denies: Thoracentesis GI Surgical History: Reports: Colonoscopy, EGD, Hernia, Inguinal, Polypectomy, Other (See Below). Denies: Appendectomy, Cholecystectomy, Hernia, Abdominal, Hernia Repair/Other Other GI Surgeries/Procedures: Right inguinal hernia repair in about 2008, last colonoscopy and EGD on 04/06/15 with previous evaluation on 04/06/07, previous colonoscopy on 09/18/01 Male Surgical History: Reports: Circumcision, Other (See Below). Denies: Renal Calculus, TURP-Transurethral Resection of Prostate, Vasectomy Other Male Surgeries/Procedures: Circumcision as an infant Endocrine Surgical History: Reports: None. Denies: Thyroid Biopsy Neurological Surgical History: Reports: C-Spine, Laminectomy, Other (See Below) . Denies: Discectomy, Intracranial, Lumbar Spine, Spinal Fusion, Vertebroplasty Other Neurological Surgeries/Procedures: Cervical laminectomy on 11/24/01 Musculoskeletal Surgical History: Reports: Carpal Tunnel, Ganglion Cyst, Shoulder Replacement, Shoulder Surgery, Other (See Below). Denies: Arthroscopic Procedure, Joint Replacement, ORIF Other Musculoskeletal Surgeries/Procedures:: Left-sided carpal tunnel release with concomitant excision of benign ganglion cyst from the left thumb in August 2016, right shoulder arthroplasty on 08/11/11 Oncologic Surgical History: Reports: None Dermatological Surgical History: Reports: None - Past Imaging History Past Imaging History: Reports: Angiography (Heart catheterization on 01/14/17), Cardiac Echo (01/13/17 with ejection fraction of 45%), PFT (Last PFTs on 03/30/07 with previous evaluation on 11/01/02). Denies: Carotid US, Stress Testing Social & Family History - Family History HEENT: Reports: Allergic Rhinitis, Macular Degeneration, Other (See Below). Denies: Cataract, Glaucoma, Retinal Detachment Other HEENT Family History: Mother with allergic rhinitis, brother with macular degeneration Cardiac: Reports: Arrhythmia, CAD, High Cholesterol, Hypertension, PVD/COD, Other (See Below). Denies: Afib, AICD, Aneurysm, Blood Clots/VTE/DVT, Bypass, Heart Failure, Heart Murmur, PA, Pacemaker, Stent, Syncope Other Cardiac Family History: Mother with unknown type of arrhythmia and heart disease in her 70s, hypertension in mother and 2 brothers, brothers 2 and sister with hyperlipidemia, brother with carotid occlusive disease which did require carotid endarterectomy Respiratory: Reports: Asthma, COPD, Other (See Below). Denies: PE, Pneumothorax , Sleep Apnea Other Respiratory Family Hisory: Mother with asthma, COPD in 2 maternal uncles who did use tobacco with one of these uncles dying at age 55 from this disease, brother with COPD and history of tobacco use GI: Reports: Cholelithiasis, Colon Polyps, GERD, Hiatal Hernia, Other (See Below ). Denies: Celiac Disease, Diverticulosis, GI bleed, Inflammatory Bowel Disease , Irritable Bowel Syndrome Other GI Family History: Brother with colonic polyps at age 48, Brother with hiatal hernia, mother with cholelithiasis and GERD, father with peptic ulcer disease : Reports: Renal Calculus, Other (See Below). Denies: Dialysis, Renal Disease /Insufficiency Other Family History: Brother with urolithiasis OBGYN: Reports: None. Denies: Endometriosis, Recurrent Spontaneous Musculoskeletal: Reports: Arthritis, Osteoarthritis, Other (See Below). Denies : Gout, RA, SLE Other Musculoskeletal Family History: Brother with osteoarthritis Neurological: Reports: Alzheimers Disease, CVA, Dementia, Other (See Below). Denies: Cerebral Aneurysms, Migraines, MS, Parkinson's, Seizure, TIA Other Neurological Family History: Father with CVA at age 92, mother with organic brain syndrome, maternal grandmother with history of 2 previous CVAs fatal in her 90s Psychiatric: Reports: Anxiety, Depression, Other (See Below). Denies: Abuse, Victim of, ADD, ADHD, Psych Hospitalization(s), PTSD, Suicide Attempt Other Psychiatric Family History: Mother with mixed anxiety depression disorder Endocrine/Metabolic: Reports: None. Denies: Diabetes, Type I, Diabetes, type II , Hypothyroidism, IDDM Hematologic: Reports: None. Denies: Anemia, SLE, Transfusion Reaction Immunologic: Reports: None. Denies: AIDS, HIV, SLE Dermatologic: Reports: Eczema. Denies: Psoriasis Other Dermatologic Family History: Mother with eczema Oncologic: Reports: Colon, Other (See Below). Denies: Hodgkin's Lymphoma, Leukemia, Lymphoma, Non-Hodgkin's Lymphoma, Prostate, Skin Other Oncologic Family History: Paternal uncle with fatal colon cancer at age 74 , paternal grandfather with fatal cancer of unknown type, patient denies family history of rectal cancer in maternal uncle despite medical records - Tobacco Use Smoking Status *Q: Former Smoker Years of Tobacco use: 50 Packs/Tins Daily: 2 (Smoked cigarettes between ages 11 and 61 with maximum use of 3 packs per day) Used Tobacco, but Quit: Yes Month Tobacco Last Used: As above Smoking Cessation Information Provided To Patient: No Second Hand Smoke Exposure: Yes Source of Second Hand Smoke Exposure: smokes Second Hand Smoke Education Provided: Yes - Caffeine Use Caffeine Use: Reports: Coffee (2 cups per day), Soda (2 sodas per day). Denies : Energy Drinks, Tea - Alcohol Use Alcohol Use History: Yes Days Per Week of Alcohol Use: 7 (No previous DWIs, problems with alcohol abuse, etc.) Number of Drinks Per Day: 3 (Usually wine or mixed drinks with occasional beer) Total Drinks Per Week: 21 Alcohol Use in Last Twelve Months: Yes Alcohol Use Frequency: Socially - Recreational Drug Use Recreational Drug Use: No Drug Use in Last 12 Months: No Recreational Drug Type: Denies: Amphetamines (Speed), Cocaine, Heroin, Inhalants (Glues, Solvents, Aerosols), LSD (Acid), Marijuana/Hashish, Methamphetamine, Morphine - Living Situation & Occupation Living situation: Reports: ( to second in 1986 with no children from this relationship, from first with 2 children from this relationship,), with Family () 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 Denies: Fever, Chills, Malaise, Weakness , Fatigue, Night Sweats, Decreased Appetite, Weight Loss, Weight Gain HEENT: Denies: Dental Pain, Ear Discharge, Ear Pain, Rhinitis, Sinus Problem, Throat Pain, Throat Swelling, Vertigo, Vision Change Respiratory: Denies: Shortness of Breath, Wheezing, Pleuritic Chest Pain, Cough , Sputum Cardiovascular: Reports: Lightheadedness. Denies: Chest Pain, Blood Pressure Problem, Claudication, Dyspnea on Exertion, Edema, Orthopnea, Palpitations, PND , Syncope Endocrine: Reports: No Symptoms. Denies: Fatigue GI/Abdominal: Reports: Abdominal Pain, Diarrhea, Nausea, Vomiting. Denies: Anorexia, Black Stool, Bloody Stool, Constipation, Decreased Appetite, Difficulty Swallowing, Distension, Flatus, Hematemesis, Hematochezia, Melena, Mucous in Stool, Stool Incontinence : Reports: No Symptoms. Denies: Discharge, Dysuria, Flank Pain, Frequency, Hematuria, Incontinence, Pain, Urgency Musculoskeletal: Reports: Muscle Pain (Generalized cramping). Denies: Neck Pain , Shoulder Pain, Arm Pain, Hand Pain, Leg Pain, Foot Pain, Joint Pain, Joint Swelling, Muscle Stiffness Skin: Reports: Diaphoresis. Denies: Jaundice, Mottled, Pallor, Dryness, Bruising, Pruritis, Wound Neurological: Reports: Dizziness. Denies: Headache, Numbness, Paresthesia, Seizure, Syncope, Tingling, Difficulty Walking, Weakness Psychiatric: Reports: No Symptoms. Denies: Agitation, Anxiety, Confusion, Depression, Hallucinations Hematologic/Lymphatic: Reports: No Symptoms Immunologic: Reports: No Symptoms ED EXAM, GI/ABD - Physical Exam Exam: See Below Exam Limited By: No Limitations General Appearance: Alert, WD/WN, No Apparent Distress, Anxious (Mild) Eyes: Bilateral: Normal Appearance (No nystagmus), EOMI (PERRLA) Ears: Normal External Exam, Normal Canal, Normal TMs, Hearing Loss (Mild bilateral) Nose: Normal Inspection, Normal Mucosa, No Blood Throat/Mouth: Normal Lips, Normal Gums, Normal Voice, No Airway Compromise. No : Normal Teeth (Partial dentures uppers and lowers), Normal Oropharynx (Mild dry oral mucosa), Dysphagia, Perioral Cyanosis Head: Atraumatic, Normocephalic. No: Facial Swelling, Facial Tenderness, Sinus Tenderness Neck: Normal Inspection, Supple, Non-Tender, Full Range of Motion. No: Carotid Bruit, Lymphadenopathy (L), Lymphadenopathy (R), Thyromegaly Respiratory/Chest: No Respiratory Distress, Lungs Clear, Normal Breath Sounds, No Accessory Muscle Use, Chest Non-Tender. No: Pleural Rub, Retractions Cardiovascular: Normal Peripheral Pulses, Regular Rate, Rhythm, No Edema, No Gallop, No JVD, No Murmur, No Rub. No: Gallop/S3, Gallop/S4, Friction Rub GI/Abdominal Exam: Normal Bowel Sounds, Soft, Non-Tender, No Organomegaly, No Distention, No Abnormal Bruit, No Mass, Pelvis Stable. No: Guarding (Male) Exam: Deferred Rectal (Males) Exam: Deferred Back Exam: Full Range of Motion, Other (Mild to moderate scoliosis). No: CVA Tenderness (L), CVA Tenderness (R), Muscle Spasm, Paraspinal Tenderness, Vertebral Tenderness Extremities: Normal Inspection, Normal Range of Motion, Non-Tender, No Pedal Edema, Normal Capillary Refill. No: Anjali's Sign Neurological: Alert, Oriented, CN II-XII Intact, Normal Cognition, Normal Gait, Normal Reflexes (Negative Babinski's), No Motor/Sensory Deficits, Other (Some Dizziness with borderline orthostasis) Psychiatric: Anxious (Mild), Depressed Mood (Borderline) Skin Exam: Warm, Dry, Intact, Normal Color, No Rash. No: Diaphoretic, Ecchymosis, Jaundice, Pallor, Petechiae, Wound/Incision Lymphatic: No Adenopathy Course - Vital Signs Last Recorded V/S: Last Vital Signs Temp 35.8 C 02/17/17 23:28 Pulse 88 02/18/17 00:59 Resp 16 02/18/17 00:59 BP 145/81 H 02/18/17 00:59 Pulse Ox 100 02/18/17 00:59 Vital Signs - 24 hr 02/17/17 02/17/17 02/18/17 23:28 23:35 00:12 Temperature [ 35.8 C Temporal] Pulse, 93 95 97 Peripheral [ Pulse Oximetry] Respiratory 18 18 21 H Rate Blood Pressure 133/77 116/79 138/85 [Right Upper Arm] O2 Sat by Pulse 100 100 98 Oximetry 02/18/17 02/18/17 00:35 00:59 Temperature [ Temporal] Pulse, 99 88 Peripheral [ Pulse Oximetry] Respiratory 19 16 Rate Blood Pressure 139/78 145/81 H [Right Upper Arm] O2 Sat by Pulse 99 100 Oximetry - Orders/Labs/Meds Orders: Active Orders 24 hr Category Date Time Status Cardiac Monitoring [RC] . DIRECTED Care 02/17/17 23:49 Active Peripheral IV Care [RC] . DIRECTED Care 02/17/17 23:40 Active Peripheral IV Care [RC] . DIRECTED Care 02/18/17 00:38 Active Nothing Per Oral Diet [DIET] Diet 02/17/17 Breakfast Active Abdomen Series w Chest 1V [CR] Stat Exams 02/17/17 23:40 Taken CULTURE URINE [RM] Stat Lab 02/17/17 23:40 Uncollected H PYLORI STOOL ANTIGEN [MREF] Urgent Lab 02/17/17 23:40 Uncollected UA W/MICROSCOPIC [URIN] Urgent Lab 02/17/17 23:40 Uncollected Ciprofloxacin in D5W [Cipro in D5W 200 MG/100 ML] 200 Med 02/18/17 01:00 Active mg Premix Bag 1 bag IV Q24H Sodium Chloride 0.9% [Normal Saline] 1,000 ml Med 02/18/17 00:37 Active IV .BOLUS Sodium Chloride 0.9% [Saline Flush] Med 02/17/17 23:39 Active 10 ml FLUSH ASDIRECTED PRN Sodium Chloride 0.9% [Saline Flush] Med 02/18/17 00:37 Active 10 ml FLUSH ASDIRECTED PRN metroNIDAZOLE/Normal Saline [Flagyl 500 MG in NS 100 ML Med 02/17/17 23:45 Active ] 500 mg Premix Bag 1 bag IV Q8H Obtain Past Medical Record [OM.PC] Urgent Oth 02/17/17 23:40 Active Peripheral IV Insertion Adult [OM.PC] Stat Oth 02/17/17 23:40 Ordered Peripheral IV Insertion Adult [OM.PC] Stat Oth 02/18/17 00:25 Ordered Resuscitation Status Stat Resus Stat 02/17/17 23:39 Ordered Medication Orders Metronidazole 500 mg/ Premix 100 mls @ 100 mls/hr IV Q8H [facility] Last Admin: 02/18/17 00:04 Dose: 100 mls/hr Sodium Chloride (Normal Saline) 1,000 mls @ 999 mls/hr IV .BOLUS ONE Stop: 02/18/17 01:37 Last Admin: 02/18/17 00:39 Dose: 999 mls/hr Ciprofloxacin/Dextrose 200 mg/ (Premix) 100 mls @ 100 mls/hr IV Q24H [facility] Magnesium Sulfate 2 gm/ Premix 50 mls @ 50 mls/hr IV ONETIME ONE Stop: 02/18/17 01:51 Last Admin: 02/18/17 00:55 Dose: 50 mls/hr Sodium Chloride (Saline Flush) 10 ml FLUSH ASDIRECTED PRN PRN Reason: Keep Vein Open Last Admin: 02/18/17 00:12 Dose: 10 ml Sodium Chloride (Saline Flush) 10 ml FLUSH ASDIRECTED PRN PRN Reason: Keep Vein Open Labs: Laboratory Tests 02/17/17 02/17/17 02/17/17 Range/Units 23:55 23:55 23:55 WBC 15.9 H (4.0-10.2) K/uL RBC 4.67 (4.33-5.41) M/uL Hgb 15.5 (13.1-16.8) g/dL Hct 43.4 (39.0-49.0) % MCV 92.9 (84.0-98.0) fL MCH 33.2 (28.2-33.3) pg MCHC 35.7 (31.7-36.0) g/dL RDW 12.6 (11.2-14.1) % Plt Count 451 H D (150-350) K/uL Neut % (Auto) 86.3 H (45.0-80.0) % Lymph % (Auto) 6.5 L (10.0-50.0) % [place] % (Auto) 6.4 (2.0-14.0) % Eos % (Auto) 0.4 (0.0-5.0) % Baso % (Auto) 0.4 (0.0-2.0) % Neut # (Auto) 13.72 H (1.40-7.00) K/uL Lymph # (Auto) 1.03 (0.50-3.50) K/uL [place] # (Auto) 1.01 H (0.00-1.00) K/uL Eos # (Auto) 0.06 (0.00-0.50) K/uL Baso # (Auto) 0.06 (0.00-0.20) K/uL PT 10.7 (9.8-11.7) SEC INR 1.0 APTT 24.9 (23.5-30.0) SEC Sodium (136-145) mmol/L Potassium (3.5-5.1) mmol/L Chloride (98-107) mmol/L Carbon Dioxide (21.0-32.0) mmol/L BUN (7-18) mg/dL Creatinine (0.51-1.17) mg/dL Est Cr Clr Drug Dosing Estimated GFR (MDRD) mL/min Glucose (74-106) mg/dL Lactic Acid (0.4-2.0) mmol/L Uric Acid (2.6-7.2) mg/dL Calcium (8.5-10.1) mg/dL Magnesium (1.8-2.4) mg/dL Total Bilirubin (0.2-1.0) mg/dL AST (15-37) U/L ALT (12-78) U/L Alkaline Phosphatase (46-116) IU/L Total Protein (6.4-8.2) g/dL Albumin (3.4-5.0) g/dL Amylase 137 H (25-115) U/L Lipase (73-393) U/L 02/17/17 02/17/17 Range/Units 23:55 23:55 WBC (4.0-10.2) K/uL RBC (4.33-5.41) M/uL Hgb (13.1-16.8) g/dL Hct (39.0-49.0) % MCV (84.0-98.0) fL MCH (28.2-33.3) pg MCHC (31.7-36.0) g/dL RDW (11.2-14.1) % Plt Count (150-350) K/uL Neut % (Auto) (45.0-80.0) % Lymph % (Auto) (10.0-50.0) % [place] % (Auto) (2.0-14.0) % Eos % (Auto) (0.0-5.0) % Baso % (Auto) (0.0-2.0) % Neut # (Auto) (1.40-7.00) K/uL Lymph # (Auto) (0.50-3.50) K/uL [place] # (Auto) (0.00-1.00) K/uL Eos # (Auto) (0.00-0.50) K/uL Baso # (Auto) (0.00-0.20) K/uL PT (9.8-11.7) SEC INR APTT (23.5-30.0) SEC Sodium 140 (136-145) mmol/L Potassium 5.0 (3.5-5.1) mmol/L Chloride 105 (98-107) mmol/L Carbon Dioxide 16.1 L D (21.0-32.0) mmol/L BUN 31 H (7-18) mg/dL Creatinine 3.02 H* (0.51-1.17) mg/dL Est Cr Clr Drug Dosing TNP Estimated GFR (MDRD) 21 mL/min Glucose 158 H (74-106) mg/dL Lactic Acid 1.6 (0.4-2.0) mmol/L Uric Acid 6.4 (2.6-7.2) mg/dL Calcium 9.3 (8.5-10.1) mg/dL Magnesium 0.6 L (1.8-2.4) mg/dL Total Bilirubin 0.7 (0.2-1.0) mg/dL AST 38 H (15-37) U/L ALT 54 (12-78) U/L Alkaline Phosphatase 166 H (46-116) IU/L Total Protein 9.8 H (6.4-8.2) g/dL Albumin 4.8 (3.4-5.0) g/dL Amylase (25-115) U/L Lipase 347 (73-393) U/L Meds: Medications Generic Name Dose Route Start Last Admin Trade Name Freq PRN Reason Stop Dose Admin Metronidazole 500 mg/ Premix 100 mls @ 100 mls/hr 02/17/17 23:45 02/18/17 00: 04 IV 100 mls/hr Q8H [facility] Administration Sodium Chloride 1,000 mls @ 999 mls/hr 02/18/17 00:37 02/18/17 00:39 Normal Saline IV 02/18/17 01:37 999 mls/hr .BOLUS ONE Administration Ciprofloxacin/Dextrose 200 mg/ 100 mls @ 100 mls/hr 02/18/17 01:00 Premix IV Q24H [facility] Magnesium Sulfate 2 gm/ Premix 50 mls @ 50 mls/hr 02/18/17 00:52 02/18/17 00: 55 IV 02/18/17 01:51 50 mls/hr ONETIME ONE Administration Sodium Chloride 10 ml 02/17/17 23:39 02/18/17 00:12 Saline Flush FLUSH 10 ml ASDIRECTED PRN Administration Keep Vein Open Sodium Chloride 10 ml 02/18/17 00:37 Saline Flush FLUSH ASDIRECTED PRN Keep Vein Open Discontinued Medications Generic Name Dose Route Start Last Admin Trade Name Freq PRN Reason Stop Dose Admin Famotidine 40 mg 02/17/17 23:39 02/17/17 23:55 Pepcid IVPUSH 02/17/17 23:40 40 mg ONETIME ONE Administration Ciprofloxacin/Dextrose 200 mg/ 100 mls @ 100 mls/hr 02/18/17 08:00 Premix IV Q12HR [facility] Lactated Ringer's 1,000 mls @ 999 mls/hr 02/17/17 23:39 Ringers, Lactated IV 02/18/17 00:39 .BOLUS ONE Ciprofloxacin/Dextrose 200 mg/ 100 mls @ 100 mls/hr 02/18/17 00:30 Premix IV Q12HR [facility] Metoclopramide HCl 10 mg 02/17/17 23:49 02/17/17 23:55 Reglan IVPUSH 02/17/17 23:50 10 mg ONETIME ONE Administration Ondansetron HCl 4 mg 02/17/17 23:39 02/17/17 23:47 Zofran IVPUSH 02/17/17 23:40 4 mg ONETIME ONE Administration - Radiology Interpretation Free Text/Narrative:: personnel monitor shows normal sinus rhythm with heart rate in the 90s with no ectopy or arrhythmia Acute abdominal x-rays shows evidence of mild prominence of the proximal aortic arch with no cardiomegaly, CHF, pulmonary infiltrates, pneumothorax, free air, ileus, obstruction, fluid levels, etc. Moderate COPD changes noted. Moderate osteoarthritic changes and mild to moderate scoliosis present. Note status post right shoulder arthroplasty Departure - Departure Time of Disposition: 01:05 Disposition: Admitted As Inpatient 68 Condition: Good Clinical Impression: Abdominal pain, Tobacco abuse counseling, Peptic reflux disease, Dyslipidemia, Hypomagnesemia, Hyperglycemia, Dehydration COPD (chronic obstructive pulmonary disease) Qualifiers: COPD type: emphysema Emphysema type: panlobular Qualified Code(s): J43.1 - Panlobular emphysema Hypertension Qualifiers: Hypertension type: essential hypertension Qualified Code(s): I10 - Essential ( primary) hypertension Osteoarthritis Qualifiers: Osteoarthritis location: multiple joints Osteoarthritis type: primary Qualified Code(s): M15.0 - Primary generalized (osteo)arthritis Acute renal failure Qualifiers: Acute renal failure type: unspecified Qualified Code(s): N17.9 - Acute kidney failure, unspecified Coronary artery disease Qualifiers: Coronary Disease-Associated Artery/Lesion type: [place] artery [place] vs. transplanted heart: [place] heart Associated angina: without angina Qualified Code(s): I25.10 - Atherosclerotic heart disease of [place] coronary artery without angina pectoris - Discharge Information - Problem List & Annotations (1) Acute renal failure SNOMED Code(s): 96271166 Code(s): N17.9 - ACUTE KIDNEY FAILURE, UNSPECIFIED Status: Acute Priority : High Current Visit: Yes Onset Date: 02/18/17 Annotation/Comment:: Acute renal failure of unknown etiology possibly secondary to current dehydration as below. Initiate aggressive IV fluids with one bolus of normal saline initiated in the emergency room with continuation of aggressive IV hydration with caution secondary to his history of CHF. Close follow-up during this hospitalization, including blood work later this morning. Nephrology consultation and/or transfer depending on his clinical course. Complete renal ultrasound later this morning. Discontinue nephrotoxic medications. Dr. Sanchez assumes care later this morning. Urine for microalbumin and phosphate level in the a.m. Consider 24 -hour urine for total protein and creatinine depending on his clinical course Qualifiers: Acute renal failure type: unspecified Qualified Code(s): N17.9 - Acute kidney failure, unspecified (2) Abdominal pain SNOMED Code(s): 92952238 Code(s): R10.9 - UNSPECIFIED ABDOMINAL PAIN Status: Acute Priority: High Current Visit: Yes Onset Date: 02/17/17 Annotation/Comment:: Specific generalized abdominal cramping possibly secondary to viral gastroenteritis versus diverticulitis. Note leukocytosis with left shift with possible additional stress reaction secondary to his nausea/emesis. IV Cipro and IV Flagyl therapy initiated in the emergency room. Initiate Hemoccults during this hospitalization (3) CHF (congestive heart failure) SNOMED Code(s): 86215227 Code(s): I50.9 - HEART FAILURE, UNSPECIFIED Status: Acute Priority: Medium Current Visit: No Onset Date: 01/13/17 Annotation/Comment:: Mildly decreased cardiac function based on recent echocardiogram as above. No clinical evidence of significant CHF. Qualifiers: Congestive heart failure type: unspecified congestive heart failure type Congestive heart failure chronicity: acute Qualified Code(s): I50.9 - Heart failure, unspecified (4) Coronary artery disease SNOMED Code(s): 03408539 Code(s): I25.10 - ATHSCL HEART DISEASE OF [place] CORONARY ARTERY W/O ANG PCTRS Status: Acute Current Visit: Yes Annotation/Comment:: No recent chest pain or anginal complaints. Patient was scheduled to complete the cardiac rehabilitation program in our facility later today. He is also scheduled to change from Brilinta to Plavix later this morning Qualifiers: Coronary Disease-Associated Artery/Lesion type: [place] artery [place] vs. transplanted heart: [place] heart Associated angina: without angina Qualified Code(s): I25.10 - Atherosclerotic heart disease of [place] coronary artery without angina pectoris (5) Dehydration SNOMED Code(s): 58083784 Code(s): E86.0 - DEHYDRATION Status: Acute Priority: High Current Visit : Yes Annotation/Comment:: Aggressive IV fluids as above (6) Hypomagnesemia SNOMED Code(s): 273140972 Code(s): E83.42 - HYPOMAGNESEMIA Status: Acute Priority: Medium Current Visit: Yes Onset Date: 01/13/17 Annotation/Comment:: Significant hypomagnesemia with IV magnesium sulfate to be given shortly after admission with subsequent initiation of magnesium oxide with caution secondary to his renal failure Known previous history of mild hypomagnesemia (7) COPD (chronic obstructive pulmonary disease) SNOMED Code(s): 26149406 Code(s): J44.9 - CHRONIC OBSTRUCTIVE PULMONARY DISEASE, UNSPECIFIED Status : Chronic Priority: Medium Current Visit: Yes Annotation/Comment:: No recent fever or bronchitic type symptoms. Patient may benefit from PFTs secondary to his previous history of significant tobacco use in the past as above Qualifiers: COPD type: emphysema Emphysema type: panlobular Qualified Code(s): J43.1 - Panlobular emphysema (8) Complete right bundle branch block SNOMED Code(s): 283397844 Code(s): I45.10 - UNSPECIFIED RIGHT BUNDLE-BRANCH BLOCK Status: Chronic Priority: Medium Current Visit: No Annotation/Comment:: Nonsymptomatic with no other arrhythmia noted (9) Dyslipidemia SNOMED Code(s): 877298888 Code(s): E78.5 - HYPERLIPIDEMIA, UNSPECIFIED Status: Chronic Priority: Medium Current Visit: Yes Annotation/Comment:: Currently under therapy with previous history of dyslipidemia (10) Hyperglycemia SNOMED Code(s): 11304862 Code(s): R73.9 - HYPERGLYCEMIA, UNSPECIFIED Status: Chronic Priority: Medium Current Visit: Yes Annotation/Comment:: Borderline hyperglycemia by history currently diet controlled. Glycosylated hemoglobin in the a.m. (11) Hypertension SNOMED Code(s): 98442940 Code(s): I10 - ESSENTIAL (PRIMARY) HYPERTENSION Status: Chronic Priority : High Current Visit: Yes Annotation/Comment:: Patient's blood pressures were under good control in the emergency room. Qualifiers: Hypertension type: essential hypertension Qualified Code(s): I10 - Essential (primary) hypertension (12) Osteoarthritis SNOMED Code(s): 111052385 Code(s): M19.90 - UNSPECIFIED OSTEOARTHRITIS, UNSPECIFIED SITE Status: Chronic Priority: Medium Current Visit: Yes Annotation/Comment:: Stable by history Qualifiers: Osteoarthritis location: multiple joints Osteoarthritis type: primary Qualified Code(s): M15.0 - Primary generalized (osteo)arthritis (13) Peptic reflux disease SNOMED Code(s): 29296472 Code(s): K21.9 - GASTRO-ESOPHAGEAL REFLUX DISEASE WITHOUT ESOPHAGITIS Status: Chronic Priority: Medium Current Visit: Yes Annotation/Comment:: High-dose IV Pepcid given in the emergency room with continuation of renal dose regimen thereafter as GI prophylaxis (14) Tobacco abuse counseling SNOMED Code(s): 539570688, 502523101, 520301677 Code(s): Z71.6 - TOBACCO ABUSE COUNSELING Status: Chronic Priority: Medium Current Visit: Yes Annotation/Comment:: Tobacco smoke exposure from his , who was given tobacco cessation information in the emergency room - Problem List Review Problem List Initiated/Reviewed/Updated: Yes - My Orders Last 24 Hours: My Active Orders 02/17/17 23:39 Sodium Chloride 0.9% [Saline Flush] 10 ml FLUSH ASDIRECTED PRN Resuscitation Status Stat 02/17/17 23:40 Peripheral IV Care [RC] . DIRECTED Abdomen Series w Chest 1V [CR] Stat CULTURE URINE [RM] Stat H PYLORI STOOL ANTIGEN [MREF] Urgent UA W/MICROSCOPIC [URIN] Urgent Obtain Past Medical Record [OM.PC] Urgent Peripheral IV Insertion Adult [OM.PC] Stat 02/17/17 23:45 metroNIDAZOLE/Normal Saline [Flagyl 500 MG in NS 100 ML] 500 mg Premix Bag 1 bag IV Q8H 02/17/17 23:49 Cardiac Monitoring [RC] . DIRECTED 02/17/17 Breakfast Nothing Per Oral Diet [DIET] 02/18/17 00:25 Peripheral IV Insertion Adult [OM.PC] Stat 02/18/17 00:37 Sodium Chloride 0.9% [Normal Saline] 1,000 ml IV .BOLUS Sodium Chloride 0.9% [Saline Flush] 10 ml FLUSH ASDIRECTED PRN 02/18/17 00:38 Peripheral IV Care [RC] . DIRECTED 02/18/17 01:00 Ciprofloxacin in D5W [Cipro in D5W 200 MG/100 ML] 200 mg Premix Bag 1 bag IV Q24H - Assessment/Plan Admission H&P: Please use this note as an admission H&P Last 24 Hours: My Active Orders 02/17/17 23:39 Sodium Chloride 0.9% [Saline Flush] 10 ml FLUSH ASDIRECTED PRN Resuscitation Status Stat 02/17/17 23:40 Peripheral IV Care [RC] . DIRECTED Abdomen Series w Chest 1V [CR] Stat CULTURE URINE [RM] Stat H PYLORI STOOL ANTIGEN [MREF] Urgent UA W/MICROSCOPIC [URIN] Urgent Obtain Past Medical Record [OM.PC] Urgent Peripheral IV Insertion Adult [OM.PC] Stat 02/17/17 23:45 metroNIDAZOLE/Normal Saline [Flagyl 500 MG in NS 100 ML] 500 mg Premix Bag 1 bag IV Q8H 02/17/17 23:49 Cardiac Monitoring [RC] . DIRECTED 02/17/17 Breakfast Nothing Per Oral Diet [DIET] 02/18/17 00:25 Peripheral IV Insertion Adult [OM.PC] Stat 02/18/17 00:37 Sodium Chloride 0.9% [Normal Saline] 1,000 ml IV .BOLUS Sodium Chloride 0.9% [Saline Flush] 10 ml FLUSH ASDIRECTED PRN 02/18/17 00:38 Peripheral IV Care [RC] . DIRECTED 02/18/17 01:00 Ciprofloxacin in D5W [Cipro in D5W 200 MG/100 ML] 200 mg Premix Bag 1 bag IV Q24H Assessment:: As above Plan: As above. Extensive precautions were given to the patient and his , who are in agreement with the treatment plan. The patient will require about 3-4 days of inpatient/acute care secondary to multiple health problems as above.
[2017-02-17] MEDS ORDERED: Metoclopramide 10 MG/2 ML SDV IVPUSH ONE (23:49)
[2017-02-18] MEDS: metroNIDAZOLE/Normal Saline 500 MG in Premix Bag 1 BAG IV SCH ×4 (00:04→23:31)
[2017-02-18] MEDS: Sodium Chloride 0.9% 10 ML Syringe FLUSH PRN ×3 (00:12→23:32)
[2017-02-18 00:22] LABS: CHLORIDE,CL 105 mmol/L (98-107); SODIUM,NA 140 mmol/L (136-145)
[2017-02-18] MEDS ORDERED: Ciprofloxacin in D5W 200 MG in Premix Bag 1 BAG IV SCH ×4 (00:30→08:00)
[2017-02-18] MEDS ORDERED: Sodium Chloride 0.9% 10 ML Syringe FLUSH PRN (00:37)
[2017-02-18] MEDS ORDERED: Sodium Chloride 0.9% 1,000 ML IV ONE (00:37)
[2017-02-18] MEDS ORDERED: Magnesium Sulfate/Water 2 GM in Premix Bag 1 BAG IV ONE (00:52)
[2017-02-18] MEDS ORDERED: Fluticasone Propionate Nasal Spray 16 GM Bottle NASBOTH PRN (01:13)
[2017-02-18] MEDS ORDERED: Temazepam 15 MG Cap PO PRN (01:21)
[2017-02-18] MEDS ORDERED: Acetaminophen 325 MG Tab PO PRN (01:21)
[2017-02-18] MEDS: Ciprofloxacin in D5W 200 MG in Premix Bag 1 BAG IV SCH ×2 (01:23)
[2017-02-18] MEDS ORDERED: Ondansetron 4 MG/2 ML SDV IVPUSH PRN (01:31)
[2017-02-18] MEDS: Sodium Chloride 0.9% 1,000 ML IV SCH ×3 (02:44→20:38)
[2017-02-18] MEDS ORDERED: Magnesium Oxide 400 MG Tab PO SCH (08:00)
[2017-02-18] MEDS: amLODIPine 5 MG Tab PO SCH (08:50)
[2017-02-18] MEDS: Acetaminophen 500 MG Tab PO SCH (08:50)
[2017-02-18] MEDS: buPROPion 150 MG Tab.SR PO SCH (08:50)
[2017-02-18] MEDS: Clopidogrel 75 MG Tab PO SCH (08:50)
[2017-02-18 09:00] LABS: CHLORIDE,CL 109 mmol/L (98-107); SODIUM,NA 141 mmol/L (136-145)
[2017-02-18] MEDS: Magnesium Oxide 400 MG Tab PO SCH (18:09)
[2017-02-19] MEDS: Ciprofloxacin in D5W 200 MG in Premix Bag 1 BAG IV SCH ×2 (00:52)
[2017-02-19] MEDS: Sodium Chloride 0.9% 1,000 ML IV SCH (06:41)
[2017-02-19] MEDS ORDERED: Famotidine 20 MG/2 ML SDV IVPUSH SCH (08:00)
[2017-02-19] MEDS: amLODIPine 5 MG Tab PO SCH (08:10)
[2017-02-19] MEDS: Clopidogrel 75 MG Tab PO SCH (08:10)
[2017-02-19] MEDS: Acetaminophen 500 MG Tab PO SCH (08:10)
[2017-02-19] MEDS: Magnesium Oxide 400 MG Tab PO SCH ×2 (08:10→12:55)
[2017-02-19] MEDS: metroNIDAZOLE/Normal Saline 500 MG in Premix Bag 1 BAG IV SCH (08:11)
[2017-02-19] MEDS: buPROPion 150 MG Tab.SR PO SCH (08:11)
[2017-02-19 12:40] VITALS: BP 154/71
--- NOTE | 2017-02-19 13:01 | PCM.PN ---
- General Info Date of Service: 02/18/17 Admission Dx/Problem (Free Text): Patient was admitted with dehydration and diarrhea noted to have electrolyte imbalance and this was being corrected overnight Functional Status: Reports: Other (Abdominal pain and diarrhea) - Review of Systems General: Reports: No Symptoms HEENT: Reports: No Symptoms Pulmonary: Reports: No Symptoms Cardiovascular: Reports: No Symptoms Gastrointestinal: Reports: Abdominal Pain, Diarrhea Genitourinary: Reports: No Symptoms Musculoskeletal: Reports: No Symptoms Skin: Reports: No Symptoms Neurological: Reports: No Symptoms Psychiatric: Reports: No Symptoms - Patient Data Vitals - Most Recent: Last Vital Signs Temp 97.4 F 02/19/17 12:00 Pulse 96 02/19/17 12:00 Resp 16 02/19/17 12:00 BP 154/71 H 02/19/17 12:00 Pulse Ox 100 02/19/17 12:00 Weight - Most Recent: 147 lb I&O - Last 24 Hours: Intake & Output 02/18/17 02/19/17 02/19/17 22:59 06:59 14:59 Intake Total 1827 1369 240 Output Total 600 1000 750 Balance 1227 369 -510 Lab Results Last 24 Hours: Laboratory Results - last 24 hr 02/19/17 Range/Units 07:33 WBC 7.6 (4.0-10.2) K/uL RBC 3.56 L (4.33-5.41) M/uL Hgb 11.8 L D (13.1-16.8) g/dL Hct 33.9 L (39.0-49.0) % MCV 95.2 (84.0-98.0) fL MCH 33.1 (28.2-33.3) pg MCHC 34.8 (31.7-36.0) g/dL RDW 12.3 (11.2-14.1) % Plt Count 331 (150-350) K/uL Neut % (Auto) 72.3 (45.0-80.0) % Lymph % (Auto) 15.4 (10.0-50.0) % [place] % (Auto) 9.2 (2.0-14.0) % Eos % (Auto) 2.4 (0.0-5.0) % Baso % (Auto) 0.7 (0.0-2.0) % Neut # (Auto) 5.52 (1.40-7.00) K/uL Lymph # (Auto) 1.17 (0.50-3.50) K/uL [place] # (Auto) 0.70 (0.00-1.00) K/uL Eos # (Auto) 0.18 (0.00-0.50) K/uL Baso # (Auto) 0.05 (0.00-0.20) K/uL [place] Results Last 24 Hours: Microbiology 02/18/17 04:15 Stool Occult Blood ([place]) - Final Stool / Feces NEGATIVE OCCULT BLOOD Med Orders - Current: Current Medications Acetaminophen (Tylenol Extra Strength) 1,000 mg PO DAILY [facility] Last Admin: 02/19/17 08:10 Dose: 1,000 mg Acetaminophen (Tylenol) 650 mg PO Q4H PRN PRN Reason: Pain (Mild 1-3)/fever Last Admin: 02/18/17 18:12 Dose: 650 mg Amlodipine Besylate (Norvasc) 10 mg PO DAILY [facility] Last Admin: 02/19/17 08:10 Dose: 10 mg Bupropion HCl (Wellbutrin Sr) 150 mg PO DAILY [facility] Last Admin: 02/19/17 08:11 Dose: 150 mg Clopidogrel Bisulfate (Plavix) 75 mg PO DAILY [facility] Last Admin: 02/19/17 08:10 Dose: 75 mg Famotidine (Pepcid) 20 mg IVPUSH DAILY [facility] Last Admin: 02/19/17 08:11 Dose: 20 mg Fluticasone Propionate (Flonase) 0 gm NASBOTH DAILY PRN PRN Reason: Allergies Last Admin: 02/19/17 00:58 Dose: 2 spray Metronidazole 500 mg/ Premix 100 mls @ 100 mls/hr IV Q8H [facility] Last Admin: 02/19/17 08:11 Dose: 100 mls/hr Ciprofloxacin/Dextrose 200 mg/ (Premix) 100 mls @ 100 mls/hr IV Q24H [facility] Last Admin: 02/19/17 00:52 Dose: 100 mls/hr Sodium Chloride (Normal Saline) 1,000 mls @ 125 mls/hr IV ASDIRECTED [facility] Last Admin: 02/19/17 06:41 Dose: 125 mls/hr Magnesium Oxide (Magnesium Oxide) 1,200 mg PO BID [facility] Last Admin: 02/19/17 12:55 Dose: 1,200 mg Ondansetron HCl (Zofran) 4 mg IVPUSH Q8H PRN PRN Reason: Nausea/Vomiting Sodium Chloride (Saline Flush) 10 ml FLUSH ASDIRECTED PRN PRN Reason: Keep Vein Open Last Admin: 02/18/17 23:32 Dose: 10 ml Sodium Chloride (Saline Flush) 10 ml FLUSH ASDIRECTED PRN PRN Reason: Keep Vein Open Temazepam (Restoril) 15 mg PO BEDTIME PRN PRN Reason: Insomnia Discontinued Medications Famotidine (Pepcid) 40 mg IVPUSH ONETIME ONE Stop: 02/17/17 23:40 Last Admin: 02/17/17 23:55 Dose: 40 mg Ciprofloxacin/Dextrose 200 mg/ (Premix) 100 mls @ 100 mls/hr IV Q12HR [facility] Lactated Ringer's (Ringers, Lactated) 1,000 mls @ 999 mls/hr IV .BOLUS ONE Stop: 02/18/17 00:39 Last Admin: 02/18/17 01:53 Dose: Not Given Ciprofloxacin/Dextrose 200 mg/ (Premix) 100 mls @ 100 mls/hr IV Q12HR [facility] Last Admin: 02/18/17 01:53 Dose: Not Given Sodium Chloride (Normal Saline) 1,000 mls @ 999 mls/hr IV .BOLUS ONE Stop: 02/18/17 01:37 Last Admin: 02/18/17 00:39 Dose: 999 mls/hr Magnesium Sulfate 2 gm/ Premix 50 mls @ 50 mls/hr IV ONETIME ONE Stop: 02/18/17 01:51 Last Admin: 02/18/17 00:55 Dose: 50 mls/hr Magnesium Oxide (Magnesium Oxide) 400 mg PO BID [facility] Last Admin: 02/18/17 08:50 Dose: 400 mg Metoclopramide HCl (Reglan) 10 mg IVPUSH ONETIME ONE Stop: 02/17/17 23:50 Last Admin: 02/17/17 23:55 Dose: 10 mg Ondansetron HCl (Zofran) 4 mg IVPUSH ONETIME ONE Stop: 02/17/17 23:40 Last Admin: 02/17/17 23:47 Dose: 4 mg - Exam General: Alert, Oriented HEENT: Pupils Equal, Pupils Reactive, EOMI, Mucous Membr. Moist/[place] Neck: Supple Lungs: Clear to Auscultation, Normal Respiratory Effort Cardiovascular: Regular Rate, Regular Rhythm GI/Abdominal Exam: Abnormal Bowel Sounds Back Exam: Normal Inspection, Full Range of Motion Extremities: Normal Inspection, Normal Range of Motion, Non-Tender, No Pedal Edema, Normal Capillary Refill - Problem List & Annotations (1) Abdominal pain SNOMED Code(s): 70606155 Code(s): R10.9 - UNSPECIFIED ABDOMINAL PAIN Status: Acute Priority: High Current Visit: Yes Onset Date: 02/17/17 Annotation/Comment:: Specific generalized abdominal cramping possibly secondary to viral gastroenteritis versus diverticulitis. Note leukocytosis with left shift with possible additional stress reaction secondary to his nausea/emesis. IV Cipro and IV Flagyl therapy initiated in the emergency room. Initiate Hemoccults during this hospitalization (2) Dehydration SNOMED Code(s): 94805555 Code(s): E86.0 - DEHYDRATION Status: Acute Priority: High Current Visit : Yes Annotation/Comment:: Aggressive IV fluids as above (3) Hypomagnesemia SNOMED Code(s): 201866775 Code(s): E83.42 - HYPOMAGNESEMIA Status: Acute Priority: Medium Current Visit: Yes Onset Date: 01/13/17 Annotation/Comment:: Significant hypomagnesemia with IV magnesium sulfate to be given shortly after admission with subsequent initiation of magnesium oxide with caution secondary to his renal failure Known previous history of mild hypomagnesemia - Problem List Review Problem List Initiated/Reviewed/Updated: Yes - My Orders Last 24 Hours: My Active Orders 02/18/17 18:00 Magnesium Oxide 1,200 mg PO BID 02/18/17 18:15 C DIFFICILE TOXIN BY PCR [MREF] Routine FECAL LACTOFERRIN [MREF] Routine STOOL CULTURE [MREF] Routine - Assessment Assessment:: We'll continue 1 more day corrected electrolytes and discharge him home in the morning
--- NOTE | 2017-02-19 13:07 | PCM.DCSUM1 ---
Discharge Summary - Hospital Course Brief History: Patient is a 66-year-old who was admitted with chief complaint of abdominal pain dehydration and electrolyte imbalance secondary to diarrhea at this time diarrhea seems to be under control patient doing much better will be sent home - Discharge Data Discharge Date: 02/19/17 Discharge Disposition: Home, Self-Care 01 Condition: Good - Discharge Diagnosis/Problem(s) (1) Abdominal pain SNOMED Code(s): 93921780 ICD Code: R10.9 - UNSPECIFIED ABDOMINAL PAIN Status: Acute Priority: High Current Visit: Yes Onset Date: 02/17/17 Problem Details: Specific generalized abdominal cramping possibly secondary to viral gastroenteritis versus diverticulitis. Note leukocytosis with left shift with possible additional stress reaction secondary to his nausea/emesis. IV Cipro and IV Flagyl therapy initiated in the emergency room. Initiate Hemoccults during this hospitalization (2) Dehydration SNOMED Code(s): 82536463 ICD Code: E86.0 - DEHYDRATION Status: Acute Priority: High Current Visit: Yes Problem Details: Aggressive IV fluids as above (3) Hypomagnesemia SNOMED Code(s): 391652307 ICD Code: E83.42 - HYPOMAGNESEMIA Status: Acute Priority: Medium Current Visit: Yes Onset Date: 01/13/17 Problem Details: Significant hypomagnesemia with IV magnesium sulfate to be given shortly after admission with subsequent initiation of magnesium oxide with caution secondary to his renal failure Known previous history of mild hypomagnesemia - Patient Instructions Diet: Usual Diet as Tolerated Feeding Instructions: Take fluid as tolerated - Discharge Plan Home Medications: Home Meds Acetaminophen 1,000 mg PO DAILY 06/06/14 [History] Fexofenadine/Pseudoephedrine [Mica-D 12 Hour Tablet] 1 tab PO DAILY PRN 06/06 [History] Fluticasone Propionate [Flonase] 2 sprays INH DAILY PRN 06/06/14 [History] Losartan [Cozaar] 100 mg PO DAILY 06/06/14 [History] amLODIPine Besylate [Amlodipine Besylate] 10 mg PO DAILY 06/06/14 [History] buPROPion HCl [Wellbutrin SR] 150 mg PO DAILY 06/06/14 [History] Omeprazole 40 mg PO DAILY 01/13/17 [History] Ticagrelor [Brilinta] 90 mg PO DAILY 02/18/17 [History] Patient Handouts: Acute Kidney Injury, Muscle Cramps and Spasms, Magnesium Sulfate injection, Metronidazole injection, Ciprofloxacin injection Forms: ED Department Discharge Referrals: Parish Richards PA [Primary Care Provider] - - Patient Data Vitals - Most Recent: Last Vital Signs Temp 97.4 F 02/19/17 12:00 Pulse 96 02/19/17 12:00 Resp 16 02/19/17 12:00 BP 154/71 H 02/19/17 12:00 Pulse Ox 100 02/19/17 12:00 Weight - Most Recent: 147 lb I&O - Last 24 hours: Intake & Output 02/18/17 02/19/17 02/19/17 22:59 06:59 14:59 Intake Total 1827 1369 240 Output Total 600 1000 750 Balance 1227 369 -510 Lab Results - Last 24 hrs: Laboratory Results - last 24 hr 02/19/17 Range/Units 07:33 WBC 7.6 (4.0-10.2) K/uL RBC 3.56 L (4.33-5.41) M/uL Hgb 11.8 L D (13.1-16.8) g/dL Hct 33.9 L (39.0-49.0) % MCV 95.2 (84.0-98.0) fL MCH 33.1 (28.2-33.3) pg MCHC 34.8 (31.7-36.0) g/dL RDW 12.3 (11.2-14.1) % Plt Count 331 (150-350) K/uL Neut % (Auto) 72.3 (45.0-80.0) % Lymph % (Auto) 15.4 (10.0-50.0) % [place] % (Auto) 9.2 (2.0-14.0) % Eos % (Auto) 2.4 (0.0-5.0) % Baso % (Auto) 0.7 (0.0-2.0) % Neut # (Auto) 5.52 (1.40-7.00) K/uL Lymph # (Auto) 1.17 (0.50-3.50) K/uL [place] # (Auto) 0.70 (0.00-1.00) K/uL Eos # (Auto) 0.18 (0.00-0.50) K/uL Baso # (Auto) 0.05 (0.00-0.20) K/uL [place] Results - Last 24 hrs: Microbiology 02/18/17 04:15 Stool Occult Blood ([place]) - Final Stool / Feces NEGATIVE OCCULT BLOOD Med Orders - Current: Current Medications Acetaminophen (Tylenol Extra Strength) 1,000 mg PO DAILY [facility] Last Admin: 02/19/17 08:10 Dose: 1,000 mg Acetaminophen (Tylenol) 650 mg PO Q4H PRN PRN Reason: Pain (Mild 1-3)/fever Last Admin: 02/18/17 18:12 Dose: 650 mg Amlodipine Besylate (Norvasc) 10 mg PO DAILY [facility] Last Admin: 02/19/17 08:10 Dose: 10 mg Bupropion HCl (Wellbutrin Sr) 150 mg PO DAILY [facility] Last Admin: 02/19/17 08:11 Dose: 150 mg Clopidogrel Bisulfate (Plavix) 75 mg PO DAILY [facility] Last Admin: 02/19/17 08:10 Dose: 75 mg Famotidine (Pepcid) 20 mg IVPUSH DAILY [facility] Last Admin: 02/19/17 08:11 Dose: 20 mg Fluticasone Propionate (Flonase) 0 gm NASBOTH DAILY PRN PRN Reason: Allergies Last Admin: 02/19/17 00:58 Dose: 2 spray Metronidazole 500 mg/ Premix 100 mls @ 100 mls/hr IV Q8H [facility] Last Admin: 02/19/17 08:11 Dose: 100 mls/hr Ciprofloxacin/Dextrose 200 mg/ (Premix) 100 mls @ 100 mls/hr IV Q24H [facility] Last Admin: 02/19/17 00:52 Dose: 100 mls/hr Sodium Chloride (Normal Saline) 1,000 mls @ 125 mls/hr IV ASDIRECTED [facility] Last Admin: 02/19/17 06:41 Dose: 125 mls/hr Magnesium Oxide (Magnesium Oxide) 1,200 mg PO BID [facility] Last Admin: 02/19/17 12:55 Dose: 1,200 mg Ondansetron HCl (Zofran) 4 mg IVPUSH Q8H PRN PRN Reason: Nausea/Vomiting Sodium Chloride (Saline Flush) 10 ml FLUSH ASDIRECTED PRN PRN Reason: Keep Vein Open Last Admin: 02/18/17 23:32 Dose: 10 ml Sodium Chloride (Saline Flush) 10 ml FLUSH ASDIRECTED PRN PRN Reason: Keep Vein Open Temazepam (Restoril) 15 mg PO BEDTIME PRN PRN Reason: Insomnia Discontinued Medications Famotidine (Pepcid) 40 mg IVPUSH ONETIME ONE Stop: 02/17/17 23:40 Last Admin: 02/17/17 23:55 Dose: 40 mg Ciprofloxacin/Dextrose 200 mg/ (Premix) 100 mls @ 100 mls/hr IV Q12HR [facility] Lactated Ringer's (Ringers, Lactated) 1,000 mls @ 999 mls/hr IV .BOLUS ONE Stop: 02/18/17 00:39 Last Admin: 02/18/17 01:53 Dose: Not Given Ciprofloxacin/Dextrose 200 mg/ (Premix) 100 mls @ 100 mls/hr IV Q12HR [facility] Last Admin: 02/18/17 01:53 Dose: Not Given Sodium Chloride (Normal Saline) 1,000 mls @ 999 mls/hr IV .BOLUS ONE Stop: 02/18/17 01:37 Last Admin: 02/18/17 00:39 Dose: 999 mls/hr Magnesium Sulfate 2 gm/ Premix 50 mls @ 50 mls/hr IV ONETIME ONE Stop: 02/18/17 01:51 Last Admin: 02/18/17 00:55 Dose: 50 mls/hr Magnesium Oxide (Magnesium Oxide) 400 mg PO BID [facility] Last Admin: 02/18/17 08:50 Dose: 400 mg Metoclopramide HCl (Reglan) 10 mg IVPUSH ONETIME ONE Stop: 02/17/17 23:50 Last Admin: 02/17/17 23:55 Dose: 10 mg Ondansetron HCl (Zofran) 4 mg IVPUSH ONETIME ONE Stop: 02/17/17 23:40 Last Admin: 02/17/17 23:47 Dose: 4 mg *Q Meaningful Use (DIS) - VTE *Q VTE Criteria *Q: - Stroke *Q Stroke Criteria *Q: - AMI *Q AMI Criteria *Q:
== END 2017-02-19 13:58 | disposition home or self-care (01) | DRG 425 ==
LOC: LL.ED 23:19 → LL.MS 02-18 00:45
PROVIDERS: ADMIT Family Medicine; ATTEND Family Medicine
DX: E83.42 Hypomagnesemia (principal); E86.0 Dehydration; R19.7 Diarrhea, unspecified; N17.9 Acute kidney failure, unspecified; I25.10 Atherosclerotic heart disease of native coronary artery without angina pectoris; I42.9 Cardiomyopathy, unspecified; I50.9 Heart failure, unspecified; F41.8 Other specified anxiety disorders; I11.0 Hypertensive heart disease with heart failure; J44.9 Chronic obstructive pulmonary disease, unspecified; M15.0 Primary generalized (osteo)arthritis; E78.5 Hyperlipidemia, unspecified; I45.10 Unspecified right bundle-branch block; K21.9 Gastro-esophageal reflux disease without esophagitis; Z71.6 Tobacco abuse counseling; Z87.891 Personal history of nicotine dependence; Z91.010 Allergy to peanuts; Z88.2 Allergy status to sulfonamides; Z88.8 Allergy status to other drugs, medicaments and biological substances; Z91.09 Other allergy status, other than to drugs and biological substances; Z79.899 Other long term (current) drug therapy; J30.9 Allergic rhinitis, unspecified; Z95.5 Presence of coronary angioplasty implant and graft; I25.2 Old myocardial infarction; N40.0 Benign prostatic hyperplasia without lower urinary tract symptoms; R73.9 Hyperglycemia, unspecified
CPT/HCPCS: 36415; 74022; 76770; 80048; 80053; 81001; 82044; 82150; 82272; 83036; 83605; 83630; 83690; 83735; 84100; 84550; 85025; 85610; 85730; 87045; 87046; 87086; 87338; 87493; 96365; 96374; 96375; 99285; A9270-GY; J0744; J2405; J2765; J3475; J7030; J7050; S0028

== ENCOUNTER 2017-08-11 09:51 | Day surgery (SDC) | payer BC ==
[~2017-08-11 09:51] MED LIST: Lactated Ringers 1,000 ML IV SCH; Propofol 200 MG/20 ML SDV ONE; Sodium Chloride 0.9% 10 ML Syringe FLUSH PRN
--- NOTE | 2017-08-11 10:23 | PCM.HPR ---
H & P Addendum review - H & P Addendum Review Date of Original H & P: 07/22/17 Date Reviewed: 08/11/17 Time Reviewed: 10:23 Patient was Examined: No Changes
[2017-08-11] MEDS ORDERED: Propofol 200 MG/20 ML SDV ONE (10:30)
--- NOTE | 2017-08-11 11:03 | PCM.OPNOTE ---
- General Post-Op/Procedure Note Date of Surgery/Procedure: 08/11/17 Operative Procedure(s): Colonoscopy with polypectomy Findings: 3 small polyps Pre Op Diagnosis: Hx Colon Polyps Post-Op Diagnosis: Same Anesthesia Technique: MAC Primary Surgeon: Shane Justice Pathology: polyps Complications: None Condition: Good Free Text/Narrative:: Intake & Output 08/10/17 08/11/17 08/11/17 22:59 06:59 14:59 Intake Total 500 Balance 500
--- NOTE | 2017-08-11 11:45 | OR ---
Date of Procedure: 08/11/2017 PREOPERATIVE DIAGNOSIS: History of colon polyps. POSTOPERATIVE DIAGNOSIS: Colon polyps. PROCEDURES: Colonoscopy with polypectomy. ANESTHESIA: IV sedation. DESCRIPTION OF PROCEDURE: The patient was brought to the procedure room, where he was placed on the left side and IV sedation administered. Digital rectal exam was performed, which was normal. Colonoscope was inserted and advanced to the level of the cecum without difficulty. Cecal position was confirmed by identifying the appendiceal lumen and ileocecal valve. Prep was good and surfaces were well visualized. Upon withdrawing the scope, the ascending, transverse, and descending colon were normal in appearance. Sigmoid colon had 2 adjacent small 5 mm sessile polyps located at 20 cm from the anal verge that were removed with the hot biopsy forceps and sent for pathology review. The rectum has a 6 mm sessile polyp located at 13 cm from the anal verge that was also removed with hot biopsy forceps and sent for pathology review. Rectum was normal, and retroflexion was normal. Air was removed and the scope withdrawn. The patient tolerated the procedure well and returned to recovery in stable condition. The patient will follow up with [facility] next week for review of pathology report. If the polyps are adenomatous, he should undergo a repeat colonoscopy in 3 years. If polyps are hyperplastic, he could wait 5 years until his next colonoscopy. JOSEPH MOROCHO MD /[id number]
[2017-08-11 14:05] VITALS: BP 145/87
== END 2017-08-11 12:00 | disposition home or self-care (01) ==
LOC: LL.SDS 09:51
PROVIDERS: ATTEND Surgery
DX: Z12.11 Encounter for screening for malignant neoplasm of colon (principal); D12.8 Benign neoplasm of rectum; K63.5 Polyp of colon; F41.9 Anxiety disorder, unspecified; N40.0 Benign prostatic hyperplasia without lower urinary tract symptoms; J44.9 Chronic obstructive pulmonary disease, unspecified; E78.5 Hyperlipidemia, unspecified; K21.9 Gastro-esophageal reflux disease without esophagitis; I10 Essential (primary) hypertension; Z86.010 Personal history of colon polyps; Z88.2 Allergy status to sulfonamides; Z88.8 Allergy status to other drugs, medicaments and biological substances; Z91.010 Allergy to peanuts; J30.81 Allergic rhinitis due to animal (cat) (dog) hair and dander; Z79.82 Long term (current) use of aspirin; Z79.899 Other long term (current) drug therapy; Z87.891 Personal history of nicotine dependence
CPT/HCPCS: J2704; J7120

== ENCOUNTER 2020-10-16 07:36 | Day surgery (SDC) | payer MEDICARE, BC ==
[~2020-10-16 07:36] MED LIST changes: -Lactated Ringers 1,000 ML IV SCH; -Propofol 200 MG/20 ML SDV ONE
[2020-10-16] MEDS ORDERED: Propofol 200 MG/20 ML SDV ONE ×2 (08:10→08:44)
[2020-10-16] MEDS ORDERED: Midazolam 1 MG/ML 2 ML SDV ONE ×2 (08:10→08:44)
[2020-10-16] MEDS: Lactated Ringers 1,000 ML IV SCH (08:14)
[2020-10-16] MEDS ORDERED: Glycopyrrolate 0.2 MG/ML SDV ONE (08:44)
[2020-10-16] MEDS ORDERED: Lidocaine 2% 5 ML SDV ONE (08:44)
--- NOTE | 2020-10-16 09:16 | PCM.HPR ---
H & P Addendum review - H & P Addendum Review Date of Original H & P: 09/25/20 Date Reviewed: 10/16/20 Time Reviewed: 08:40 Patient was Examined: No Changes
--- NOTE | 2020-10-16 09:18 | PCM.OPNOTE ---
- General Post-Op/Procedure Note Date of Surgery/Procedure: 10/16/20 Operative Procedure(s): EGD. Colonoscopy with polypectomy Findings: Normal EGD Trans Colon Polyp Pre Op Diagnosis: GERD. Hx Polpys Post-Op Diagnosis: Same Anesthesia Technique: MAC Primary Surgeon: Shane Justice Anesthesia Provider: Patricia Ruiz EBL in mLs: 0 Complications: None Condition: Good
[2020-10-16 09:51] VITALS: BP 121/60; PULSE 81
--- NOTE | 2020-10-17 07:33 | OR ---
Date of Procedure: 10/16/2020 PREOPERATIVE DIAGNOSES: 1. Gastroesophageal reflux disease. 2. History of colon polyps. POSTOPERATIVE DIAGNOSES: 1. Normal esophagogastroduodenoscopy. 2. Transverse colon polyp. PROCEDURES: 1. Esophagogastroduodenoscopy. 2. Colonoscopy with polypectomy. ANESTHESIA: IV sedation. DESCRIPTION OF PROCEDURE: The patient was brought to the procedure room where he was placed on his left side and IV sedation administered. Oral bite block was placed and the upper endoscope advanced into the esophagus under direct vision without difficulty. Vocal cords were viewed and were normal. The scope was advanced to the third portion of the duodenum. Duodenum and pylorus were normal. Antrum and body of the stomach were normal. Retroflexion revealed a normal-appearing fundus. There was no hiatal hernia. Squamocolumnar junction was normal. There was no evidence of reflux esophagitis. Air was removed from the stomach and the scope withdrawn through the remaining esophagus which appeared normal. The patient tolerated this portion of the procedure well. Next, colonoscopy was performed after digital rectal exam was done which was normal. Colonoscope was inserted and advanced to the level of the cecum without difficulty. Cecal position was confirmed by identifying the appendiceal lumen and ileocecal valve. Prep was good and surfaces were well visualized. Upon withdrawing the scope, the ascending colon was normal. In the transverse colon, was a 6 mm sessile polyp removed with cautery snare and retrieved in the polyp trap. The remaining transverse and descending colon were normal. Sigmoid colon had a small hyperplastic-appearing polyp at 30 cm that was destroyed with cautery. There was no specimen since it was too small to grasp. The rectum was normal and retroflexion was normal. Air was removed and the scope withdrawn. The patient tolerated the procedure well and returned to Recovery in stable condition. The patient will be contacted with the pathology report when it returns. I will recommend that he undergo surveillance colonoscopy again in 5 years. JOSEPH MOROCHO MD /[id number]
== END 2020-10-16 10:20 | disposition home or self-care (01) ==
LOC: LL.SDS 07:36
PROVIDERS: ATTEND Surgery
DX: Z12.11 Encounter for screening for malignant neoplasm of colon (principal); D12.2 Benign neoplasm of ascending colon; K21.9 Gastro-esophageal reflux disease without esophagitis; I10 Essential (primary) hypertension; E78.5 Hyperlipidemia, unspecified; I25.10 Atherosclerotic heart disease of native coronary artery without angina pectoris; I12.9 Hypertensive chronic kidney disease with stage 1 through stage 4 chronic kidney disease, or unspecified chronic kidney disease; J44.9 Chronic obstructive pulmonary disease, unspecified; N17.9 Acute kidney failure, unspecified; I25.2 Old myocardial infarction; N18.31 Chronic kidney disease, stage 3a; Z79.899 Other long term (current) drug therapy; Z87.891 Personal history of nicotine dependence; Z88.8 Allergy status to other drugs, medicaments and biological substances; Z95.5 Presence of coronary angioplasty implant and graft; Z98.890 Other specified postprocedural states; Z88.0 Allergy status to penicillin; Z88.2 Allergy status to sulfonamides; Z91.010 Allergy to peanuts; Z79.82 Long term (current) use of aspirin
CPT/HCPCS: 00812; 43235; 45385; 45388; J2250; J2704; J3490; J7120; 88305

== ENCOUNTER 2024-04-12 12:08 | Day surgery (SDC) | payer MEDICARE ==
[~2024-04-12 12:08] MED LIST changes: +Midazolam 1 MG/ML 2 ML SDV ONE; +Propofol 200 MG/20 ML SDV ONE
[2024-04-12] MEDS: Lactated Ringers 1,000 ML IV SCH (12:35)
[2024-04-12 14:48] VITALS: BP 143/68; PULSE 76
== END 2024-04-12 14:54 | disposition home or self-care (01) ==
LOC: LL.SDS 12:08
PROVIDERS: ATTEND Surgery
DX: Z12.11 Encounter for screening for malignant neoplasm of colon (principal); K63.5 Polyp of colon; Z86.0100 Personal history of colon polyps, unspecified; F32.A Depression, unspecified; F41.9 Anxiety disorder, unspecified; J44.9 Chronic obstructive pulmonary disease, unspecified; I25.10 Atherosclerotic heart disease of native coronary artery without angina pectoris; I11.0 Hypertensive heart disease with heart failure; I50.33 Acute on chronic diastolic (congestive) heart failure; Z79.899 Other long term (current) drug therapy
CPT/HCPCS: 00811; 99100; J2250; J2704; J7120